=== PATIENT | male | born 1970 | race Caucasian/White ===

== ENCOUNTER 2016-11-03 13:02 | Emergency (ER) | payer MEDICARE, OTHER ==
[~2016-11-03] VITALS: Ht 175.3 cm; Wt 65.0 kg
[~2016-11-03 13:02] MED LIST: CALC500T19 PO; MIRA33502 PO; PERC5TAB12 PO; PRIL20CA PO
[2016-11-03 13:04] VITALS: BP 155/102; PULSE 88; RESP 20; TEMP 97.9; O2SAT 97
--- NOTE | 2016-11-03 13:25 | PD ---
HPI Chief Complaint: Back/ Neck Pain or Injury Time Seen by Provider: 13:22 Travel History International Travel<30 days: No Contact w/Intl Traveler<30days: No Traveled to known affect area: No History of Present Illness HPI Patient comes in complaining of right-sided low back pain that is sharp/ stabbing in nature and radiates down his right lower extremity. Patient states 4 days ago he slipped falling backwards hitting his low back on stairs. Denies any fevers, loss or change in bowel or bladder, IV drug use, hitting his head, loss of consciousness, numbness or tingling, or abdominal pain. Patient states he's been taking Tylenol with minimal to no relief of his symptoms. Pain is worse with certain movement and standing up straight. Patient reports he had similar pain in the past was told is secondary to sciatic nerve. PFSH Past Medical History Cancer: Yes Cardiovascular Problems: No Chemotherapy: No (radiation throat cancer) Endocrine: No Genitourinary: No Immune Disorder: No Musculoskeletal: Yes (SCIATICA) Neurologic: No Psychiatric: No Reproductive: No Respiratory: No Social History Alcohol Use: Yes (4 "TALL BOYS" DAILY) Tobacco Use: Yes (1-1.5 PPD) Substance Use: No Allergies-Medications (Allergen,Severity, Reaction): Coded Allergies: No Known Allergies (Unverified , 11/03/16) Reported Meds & Prescriptions Reported Meds & Active Scripts Active Naprosyn (Naproxen) 500 Mg Tab 500 Mg PO Q12HR PRN Robaxin (Methocarbamol) 500 Mg Tab 500 Mg PO Q8HR PRN Review of Systems Except as stated in HPI: all other systems reviewed are Neg Physical Exam Narrative GENERAL: Well-developed, well nourished, in no acute distress, and non-ill appearing. SKIN: Warm and dry. HEAD: Atraumatic. Normocephalic. EYES: Pupils equal and round. EOMI. No scleral icterus. No injection or drainage. ENT: No nasal bleeding or discharge. Mucous membranes pink and moist. NECK: Trachea midline. Supple. No nuclear rigidity. CARDIOVASCULAR: No pedal edema. RESPIRATORY: No accessory muscle use. No respiratory distress. GASTROINTESTINAL: Abdomen soft, non-tender, nondistended. Hepatic and splenic margins not palpable. No pulsatile mass. MUSCULOSKELETAL: No obvious deformities. No clubbing. No cyanosis. No edema. Full range of motion. No tenderness or crepitus or midline of the lumbar spine. Patient reports tenderness to the paravertebral spinal muscles on the right and lower lumbar muscles laterally on the right. Straight leg test negative bilaterally. Sensation intact over first web space bilateral lower extremities. NEUROLOGICAL: Awake and alert. No obvious cranial nerve deficits. Motor grossly within normal limits. Normal speech. PSYCHIATRIC: Appropriate mood and affect; insight and judgment normal. Data Data Last Documented VS Vital Signs Date Time Temp Pulse Resp B/P Pulse Ox O2 Delivery O2 Flow Rate FiO2 11/03/16 13:04 97.9 88 20 155/102 97 Room Air Orders Spine, Lumbar - Ltd (Ap & Lat) (11/03/16 ) Ketorolac Inj (Toradol Inj) (11/03/16 13:30) Methocarbamol (Robaxin) (11/03/16 13:30) MDM Medical Decision Making Medical Screen Exam Complete: Yes Emergency Medical Condition: Yes Differential Diagnosis Patient presents with apparent back strain. The patient presented complaining of back pain. There was history of preceding trauma. X-rays were obtained and no obvious fracture or acute disease was noted at this time. The patient has no neurological complaints. The patient has been behaving normally and no notable altered mental status. Denhoff score of 15. The patients neurological exam is normal with normal motor and sensory. There is no saddle paresthesias reported and no bowel or bladder incontinence or retention. . The patients evaluation was consistent with soft tissue injury and not consistent with bony injury. Clinical suspicion, plan of care and management was discussed with the patient. The patient was instructed to follow up with their health care provider. The patient was also instructed to return if the pain worsened, changed, or developed weakness or bowel or bladder trouble. The patient agreed with plan. There was no evidence to support genitourinary etiology. There is also no evidence to suggest vascular pathology such as AAA dissection. No fevers or other evidence to suspect infectious processes, abscess etc. Patient in no obvious distress upon re-evaluation. All pertinent Radiology result(s) discussed with patient/family. Patient was asked if they wanted to speak to my attending, which the patient did not wish to do at this time. Any questions/concerns in reference to patient diagnosis/condition discussed and clarified prior to patient's discharge. Reinforced sheer importance of close follow up with patient's primary physician or primary care clinic. Instructed patient to return to ED immediately, if symptoms return/worsen. Pt showed understanding of above instructions. Further instructions and recommendations were detailed in discharge paperwork. Pt ambulated without difficulty out of ED at discharge. Narrative Course 1450 patient reassessed resting comfortably in bed reports symptoms improved status post medication. Diagnosis Primary Impression: Low back pain Qualified Code: M54.41 - Acute right-sided low back pain with right-sided sciatica Referrals: Dionisio Hickman MD Patient Instructions: Acute Low Back Pain (ED), General Instructions, Sciatica (ED) Additional Instructions: Follow-up with your primary care physician and/or orthopedics in 2-3 days for reevaluation. Take all medication as prescribed. Return to the emergency department if symptoms get worse. Med/Other Pt SpecificInfo: Prescription(s) given Scripts Naproxen (Naprosyn)500 Mg [id number] Mg PO Q12HR PRN (PAIN SCALE 1 TO 10) #14 TAB Ref 0 Prov:Jessi Bautista MD 11/03/16 Methocarbamol (Robaxin)500 Mg [id number] Mg PO Q8HR PRN (MUSCLE PAIN) #15 TAB Ref 0 Prov:Jessi Bautista MD 11/03/16 Disposition: 01 DISCHARGE HOME Condition: Stable Gautam Gifford Nov 03, 2016 13:25
[2016-11-03] MEDS ORDERED: METHOCARBAMOL 500 MG TAB PO ONE (13:30)
[2016-11-03] MEDS ORDERED: KETOROLAC TROMETHAMINE 60 MG/2 ML (IM) VIAL IM ONE (13:30)
--- NOTE | 2016-11-03 15:00 | RADRPT ---
EXAM DATE/TIME: 11/03/2016 13:42 [facility] COMPARISON: SPINE LUMBAR LTD (AP & LAT), December 14, 2013, 16:28. INDICATIONS : Lower Back pain after falling down stairs. MEDICAL HISTORY : None. SURGICAL HISTORY : None. ENCOUNTER: Initial ACUITY: 4 - 6 days PAIN SCORE: 8/10 LOCATION: Lumbar Spine. FINDINGS: 3 views lumbar spine. Small endplate osteophytes at L2-3, L3-4, and L4-5 and unchanged. Bone alignmen t within normal limits. No evidence of fracture. CONCLUSION: Degenerative findings lumbar spine. No evidence of fracture. Julio Plolack MD on November 03, 2016 at 14:57 Board Certified Radiologist. This report was verified electronically.
[2016-11-03] MEDS ORDERED: NAPR500 PO (15:11)
[2016-11-03] MEDS ORDERED: ROBA500T PO (15:11)
== END 2016-11-03 15:35 | disposition home or self-care (01) ==
LOC: NEPB 13:02
DX: M54.41 Lumbago with sciatica, right side (principal); F17.210 Nicotine dependence, cigarettes, uncomplicated; W10.9XXA Fall (on) (from) unspecified stairs and steps, initial encounter
CPT/HCPCS: 72100; 96372; 99283; J1885

== ENCOUNTER 2017-09-29 11:00 | Inpatient (IN) | payer MEDICARE, MEDICAID, OTHER ==
[2017-09-29 11:45] LABS: BASOPHIL % 0.7 % (0.0-2.0); EOSINOPHIL % 0.3 % (0.0-4.0); HEMATOCRIT 33.2 % (39.0-51.0); HEMO FLAGS DIFF FINAL; HEMOGLOBIN 11.6 GM/DL (13.0-17.0); LYMPH % 11.5 % (9.0-44.0); LYMPHOCYTE # 0.6 TH/MM3 (1.0-4.8); MEAN CELL VOLUME 100.3 FL (80.0-100.0); MEAN CORPUSCULAR HEMOGLOBIN 35.2 PG (27.0-34.0); MEAN CORPUSCULAR HGB CONC 35.1 % (32.0-36.0); MEAN PLATELET VOLUME 6.9 FL (7.0-11.0); MONO % 15.1 % (0.0-8.0); MONOCYTE # 0.8 TH/MM3 (0-0.9); NEUT % 72.4 % (16.0-70.0); PLATELET COUNT 229 TH/MM3 (150-450); RED BLOOD COUNT 3.31 MIL/MM3 (4.50-5.90); RED CELL DISTRIBUTION WIDTH 12.5 % (11.6-17.2); WHITE BLOOD COUNT 5.5 TH/MM3 (4.0-11.0)
[2017-09-29 11:52] LABS: APTT (PATIENT) 32.9 SEC (24.3-30.1); PROTHROMBIN TIME - PATIENT 10.4 SEC (9.8-11.6)
[2017-09-29 12:31] LABS: ALBUMIN 4.3 GM/DL (3.4-5.0); ALKALINE PHOSPHATASE 100 U/L (45-117); ALT (GPT) 43 U/L (12-78); ANION GAP 9 MEQ/L (5-15); AST (GOT) 89 U/L (15-37); BICARBONATE 24.1 MEQ/L (21.0-32.0); BLOOD UREA NITROGEN 6 MG/DL (7-18); CALCIUM 8.7 MG/DL (8.5-10.1); CHLORIDE 89 MEQ/L (98-107); CREATININE 0.78 MG/DL (0.60-1.30); GLOMERULAR FILTRATION RATE 107 ML/MIN (>89); GLUCOSE,RANDOM 83 MG/DL (74-106); POTASSIUM 3.8 MEQ/L (3.5-5.1); TOTAL BILIRUBIN ADULT 0.8 MG/DL (0.2-1.0)
[2017-09-29 12:34] LABS: SODIUM (NA) 122 MEQ/L (136-145)
[2017-09-29] MEDS: IOHEXOL 350 MG/ML 10 ML VIAL (for RAD DIAG) IVCONTRAST (14:37)
[2017-09-29] MEDS: AZITHROMYCIN 250 MG TAB PO (15:11)
[2017-09-29] MEDS ORDERED: NALOXONE HCL 0.4 MG/ML AMP IV PUSH (15:45)
[2017-09-29] MEDS ORDERED: ACETAMINOPHEN 325 MG TAB PO ×2 (15:45)
[2017-09-29] MEDS ORDERED: ONDANSETRON HCL 4 MG/2 ML VIAL IVP (15:45)
[2017-09-29] MEDS: cefTRIAXone INJ 1,000 MG in SODIUM CHLORIDE 0.9% INJ 100 ML IV (15:49)
[2017-09-29] MEDS: SODIUM CHLOR 0.9% 1000 ML INJ 1,000 ML IV (15:50)
[2017-09-29] MEDS ORDERED: LORazepam 2 MG/ML VIAL IV PUSH ×2 (16:00)
[2017-09-29] MEDS ORDERED: LORazepam 2 MG TAB PO (16:00)
[2017-09-29] MEDS ORDERED: FLUMAZENIL 0.5 MG/5 ML VIAL IV PUSH (16:00)
[2017-09-29] MEDS ORDERED: LORazepam 1 MG TAB PO (16:00)
[2017-09-29 16:23] LABS: TROPONIN I LESS THAN 0.02 NG/ML (0.02-0.05)
[2017-09-29] MEDS: DOCUSATE SODIUM 50 MG/SENNA 8.6 MG TAB PO (20:21)
[2017-09-29] MEDS: SODIUM CHLORIDE 0.9% FLUSH 10 ML FLUSH IV FLUSH (20:22)
[2017-09-29 22:12] LABS: ANION GAP 7 MEQ/L (5-15); BICARBONATE 24.6 MEQ/L (21.0-32.0); BLOOD UREA NITROGEN 7 MG/DL (7-18); CALCIUM 8.4 MG/DL (8.5-10.1); CHLORIDE 93 MEQ/L (98-107); CREATININE 0.88 MG/DL (0.60-1.30); GLOMERULAR FILTRATION RATE 93 ML/MIN (>89); GLUCOSE,RANDOM 88 MG/DL (74-106); MAGNESIUM 2.5 MG/DL (1.5-2.5); POTASSIUM 3.6 MEQ/L (3.5-5.1); SODIUM (NA) 125 MEQ/L (136-145)
[2017-09-29 22:17] LABS: TROPONIN I LESS THAN 0.02 NG/ML (0.02-0.05)
[2017-09-30] MEDS: SODIUM CHLOR 0.9% 1000 ML INJ 1,000 ML IV (03:40)
[2017-09-30 04:01] LABS: BASOPHIL % 0.5 % (0.0-2.0); EOSINOPHIL % 0.7 % (0.0-4.0); HEMATOCRIT 31.1 % (39.0-51.0); HEMO FLAGS DIFF FINAL; HEMOGLOBIN 10.8 GM/DL (13.0-17.0); LYMPH % 14.1 % (9.0-44.0); LYMPHOCYTE # 0.6 TH/MM3 (1.0-4.8); MEAN CELL VOLUME 99.7 FL (80.0-100.0); MEAN CORPUSCULAR HEMOGLOBIN 34.8 PG (27.0-34.0); MEAN CORPUSCULAR HGB CONC 34.9 % (32.0-36.0); MONO % 13.3 % (0.0-8.0); MONOCYTE # 0.6 TH/MM3 (0-0.9); NEUT % 71.4 % (16.0-70.0); PLATELET COUNT 230 TH/MM3 (150-450); RED BLOOD COUNT 3.12 MIL/MM3 (4.50-5.90); RED CELL DISTRIBUTION WIDTH 12.4 % (11.6-17.2); WHITE BLOOD COUNT 4.2 TH/MM3 (4.0-11.0)
[2017-09-30 04:23] LABS: ANION GAP 9 MEQ/L (5-15); BICARBONATE 23.4 MEQ/L (21.0-32.0); BLOOD UREA NITROGEN 8 MG/DL (7-18); CALCIUM 8.4 MG/DL (8.5-10.1); CHLORIDE 96 MEQ/L (98-107); CREATININE 0.69 MG/DL (0.60-1.30); GLOMERULAR FILTRATION RATE 123 ML/MIN (>89); GLUCOSE,RANDOM 89 MG/DL (74-106); POTASSIUM 3.7 MEQ/L (3.5-5.1); SODIUM (NA) 128 MEQ/L (136-145)
[2017-09-30 04:26] LABS: ALBUMIN 3.5 GM/DL (3.4-5.0); ALT (GPT) 33 U/L (12-78); ANION GAP 9 MEQ/L (5-15); AST (GOT) 59 U/L (15-37); BICARBONATE 23.7 MEQ/L (21.0-32.0); BLOOD UREA NITROGEN 7 MG/DL (7-18); CALCIUM 8.3 MG/DL (8.5-10.1); CHLORIDE 96 MEQ/L (98-107); GLOMERULAR FILTRATION RATE 121 ML/MIN (>89); GLUCOSE,RANDOM 86 MG/DL (74-106); POTASSIUM 3.7 MEQ/L (3.5-5.1); SODIUM (NA) 129 MEQ/L (136-145)
[2017-09-30 04:27] LABS: ALKALINE PHOSPHATASE 97 U/L (45-117); TOTAL BILIRUBIN ADULT 0.8 MG/DL (0.2-1.0); TOTAL PROTEIN 7.9 GM/DL (6.4-8.2)
[2017-09-30 04:28] LABS: TROPONIN I LESS THAN 0.02 NG/ML (0.02-0.05)
[2017-09-30] MEDS ORDERED: CEFEPIME 2000 MG/NS 100 ML IV (06:00)
[2017-09-30] MEDS: AZITHROMYCIN 250 MG TAB PO (07:50)
[2017-09-30] MEDS: DOCUSATE SODIUM 50 MG/SENNA 8.6 MG TAB PO ×2 (07:52→20:04)
[2017-09-30] MEDS: SODIUM CHLORIDE 0.9% FLUSH 10 ML FLUSH IV FLUSH ×2 (07:52→20:04)
[2017-09-30] MEDS: cefTRIAXone INJ 1,000 MG in SODIUM CHLORIDE 0.9% INJ 100 ML IV (15:58)
[2017-09-30] MEDS: PIPERACIL-TAZO 3.375 GM PREMIX 50 ML IV (20:04)
[2017-09-30] MEDS: methylPREDNISolone SOD SUCC 40 MG/1 ML VIAL IV (20:04)
[2017-10-01] MEDS: methylPREDNISolone SOD SUCC 40 MG/1 ML VIAL IV ×3 (04:43→20:25)
[2017-10-01] MEDS: PIPERACIL-TAZO 3.375 GM PREMIX 50 ML IV ×3 (04:44→20:25)
[2017-10-01] MEDS: SODIUM CHLORIDE 0.9% FLUSH 10 ML FLUSH IV FLUSH ×3 (04:51→20:27)
[2017-10-01 08:34] LABS: ANION GAP 10 MEQ/L (5-15); BICARBONATE 22.6 MEQ/L (21.0-32.0); BLOOD UREA NITROGEN 5 MG/DL (7-18); CALCIUM 8.8 MG/DL (8.5-10.1); CHLORIDE 95 MEQ/L (98-107); CREATININE 0.68 MG/DL (0.60-1.30); GLOMERULAR FILTRATION RATE 125 ML/MIN (>89); GLUCOSE,RANDOM 126 MG/DL (74-106); SODIUM (NA) 128 MEQ/L (136-145)
[2017-10-01 08:46] LABS: HEMATOCRIT 32.6 % (39.0-51.0); HEMOGLOBIN 11.4 GM/DL (13.0-17.0); MEAN CELL VOLUME 101.6 FL (80.0-100.0); MEAN CORPUSCULAR HEMOGLOBIN 35.6 PG (27.0-34.0); MEAN CORPUSCULAR HGB CONC 35.1 % (32.0-36.0); MEAN PLATELET VOLUME 6.9 FL (7.0-11.0); PLATELET COUNT 282 TH/MM3 (150-450); RED BLOOD COUNT 3.21 MIL/MM3 (4.50-5.90); RED CELL DISTRIBUTION WIDTH 12.6 % (11.6-17.2); REVIEW FLAG FINAL; WHITE BLOOD COUNT 3.3 TH/MM3 (4.0-11.0)
[2017-10-01] MEDS: DOCUSATE SODIUM 50 MG/SENNA 8.6 MG TAB PO ×2 (09:00→20:25)
[2017-10-01] MEDS: AZITHROMYCIN 250 MG TAB PO (10:13)
[2017-10-01] MEDS ORDERED: RESP: ALBUTEROL 2.5 MG/3 ML NEB (PRN) NEB (12:45)
[2017-10-01] MEDS ORDERED: DO NOT ADM ANY ANTICOAGULANT DRUGS (12:49)
[2017-10-02] MEDS: methylPREDNISolone SOD SUCC 40 MG/1 ML VIAL IV (04:17)
[2017-10-02] MEDS: PIPERACIL-TAZO 3.375 GM PREMIX 50 ML IV (04:24)
[2017-10-02] MEDS: SODIUM CHLORIDE 0.9% FLUSH 10 ML FLUSH IV FLUSH ×3 (04:24→08:01)
[2017-10-02] MEDS: AZITHROMYCIN 250 MG TAB PO (08:01)
[2017-10-02] MEDS: DOCUSATE SODIUM 50 MG/SENNA 8.6 MG TAB PO (08:01)
== END 2017-10-02 12:00 | disposition home or self-care (01) | DRG 167 ==
LOC: NEPC 11:00 → NEDA 15:24 → HCIN 16:48
PROC: 0B9J8ZX Drainage of Left Lower Lung Lobe, Via Natural or Artificial Opening Endoscopic, Diagnostic (ICD-10-PCS; principal; 2017-10-01)
PROC: 0B9C8ZX Drainage of Right Upper Lung Lobe, Via Natural or Artificial Opening Endoscopic, Diagnostic (ICD-10-PCS; 2017-10-01)
PROC: 0B9G8ZX Drainage of Left Upper Lung Lobe, Via Natural or Artificial Opening Endoscopic, Diagnostic (ICD-10-PCS; 2017-10-01)
PROC: 0B9D8ZX Drainage of Right Middle Lung Lobe, Via Natural or Artificial Opening Endoscopic, Diagnostic (ICD-10-PCS; 2017-10-01)
PROC: 0B9F8ZX Drainage of Right Lower Lung Lobe, Via Natural or Artificial Opening Endoscopic, Diagnostic (ICD-10-PCS; 2017-10-01)
PROC: 0BDJ8ZX Extraction of Left Lower Lung Lobe, Via Natural or Artificial Opening Endoscopic, Diagnostic (ICD-10-PCS; 2017-10-01)
PROC: 0BD18ZX Extraction of Trachea, Via Natural or Artificial Opening Endoscopic, Diagnostic (ICD-10-PCS; 2017-10-01)
DX: J69.0 Pneumonitis due to inhalation of food and vomit (principal); R04.2 Hemoptysis; E87.1 Hypo-osmolality and hyponatremia; Z93.0 Tracheostomy status; Z68.1 Body mass index [BMI] 19.9 or less, adult; E86.1 Hypovolemia; M54.30 Sciatica, unspecified side; D64.9 Anemia, unspecified; R63.4 Abnormal weight loss; J47.9 Bronchiectasis, uncomplicated; Z85.21 Personal history of malignant neoplasm of larynx; Z86.718 Personal history of other venous thrombosis and embolism; Z87.891 Personal history of nicotine dependence; Z92.3 Personal history of irradiation
CPT/HCPCS: 31623; 70491; 71045; 71046; 71275; 80048; 80053; 83735; 84100; 84484; 85025; 85027; 85610; 85730; 86403; 87015; 87040; 87070; 87102; 87116; 87186; 87205; 87206; 88112; 88305; 88312; 88341; 93005; 99285-25

== ENCOUNTER 2017-12-04 15:49 | Observation (INO) | payer MEDICARE, MEDICAID ==
[~2017-12-04] VITALS: Ht 180.3 cm; Wt 63.6 kg
[~2017-12-04 15:49] MED LIST changes: +AUGM875T3 PO; -CALC500T19 PO; -MIRA33502 PO; -PERC5TAB12 PO; +PRED10PA PO; -PRIL20CA PO; +VANCOMYCIN INJ 1,000 MG in SODIUM CHLOR 0.9% 250 ML INJ 250 ML IV SCH
[2017-12-04 15:59] VITALS: BP 129/79; PULSE 94; RESP 16; TEMP 99; O2SAT 99
--- NOTE | 2017-12-04 16:28 | RADRPT ---
EXAM DATE/TIME: 12/04/2017 16:12 [facility] COMPARISON: No previous studies available for comparison. INDICATIONS : Right hand third digit pain and swelling. No known injury. MEDICAL HISTORY : None. SURGICAL HISTORY : tracheostomy. ENCOUNTER: Initial ACUITY: 1 day PAIN SCORE: 10/10 LOCATION: Right hand, third digit. FINDINGS: Examination of the third digit of the right hand demonstrates demonstrates severe soft tissue swellin g extending from the finger and to the metacarpal region. Status of soft tissue swelling seen along t he dorsum of the metacarpal region. The osseous structures are intact. Mild arthropathy with joint space narrowing is seen of the proxima l interphalangeal joint of the third digit. There is no evidence of fracture or destructive changes. CONCLUSION: Severe soft tissue swelling of the right third digit extending into the metacarpal region. No evidence of acute fracture or destructive bone changes. No evidence of radiopaque foreign body Stuart King MD on December 04, 2017 at 16:24 Board Certified Radiologist. This report was verified electronically.
[2017-12-04 17:54] LABS: BASOPHIL # 0.1 TH/MM3 (0-0.2); BASOPHIL % 0.7 % (0.0-2.0); EOSINOPHIL # 0.1 TH/MM3 (0-0.4); EOSINOPHIL % 1.2 % (0.0-4.0); HEMATOCRIT 33.5 % (39.0-51.0); HEMOGLOBIN 11.6 GM/DL (13.0-17.0); LYMPH % 10.3 % (9.0-44.0); LYMPHOCYTE # 0.8 TH/MM3 (1.0-4.8); MEAN CELL VOLUME 101.1 FL (80.0-100.0); MEAN CORPUSCULAR HEMOGLOBIN 35.1 PG (27.0-34.0); MEAN CORPUSCULAR HGB CONC 34.7 % (32.0-36.0); MEAN PLATELET VOLUME 7.1 FL (7.0-11.0); MONO % 8.2 % (0.0-8.0); MONOCYTE # 0.6 TH/MM3 (0-0.9); NEUT % 79.6 % (16.0-70.0); PLATELET COUNT 250 TH/MM3 (150-450); RED BLOOD COUNT 3.31 MIL/MM3 (4.50-5.90); RED CELL DISTRIBUTION WIDTH 13.6 % (11.6-17.2); WHITE BLOOD COUNT 7.5 TH/MM3 (4.0-11.0)
[2017-12-04 18:08] LABS: PROTHROMBIN TIME - PATIENT 10.1 SEC (9.8-11.6)
[2017-12-04 18:26] LABS: BICARBONATE 25.5 MEQ/L (21.0-32.0); CREATININE 0.78 MG/DL (0.60-1.30)
[2017-12-04] MEDS ORDERED: LIDOCAINE HCL 1% 50 ML VIAL INFIL ONE (21:15)
[2017-12-04] MEDS ORDERED: CLINDAMYCIN INJ 900 MG in SODIUM CHLORIDE 0.9% INJ 100 ML IV ONE (21:15)
[2017-12-04] MEDS ORDERED: SODIUM CHLORIDE 0.9% FLUSH 10 ML FLUSH IVF PRN (21:15)
[2017-12-04] MEDS ORDERED: LIDOCAINE HCL 2% 20 ML VIAL ONE (21:28)
[2017-12-04] MEDS ORDERED: CLINDAMYCIN 900 MG/NS PREMIX 50 ML IV ONE (21:30)
--- NOTE | 2017-12-04 22:52 | PD ---
HPI Chief Complaint: Skin Problem Time Seen by Provider: 21:09 Travel History International Travel<30 days: No Contact w/Intl Traveler<30days: No Traveled to known affect area: No History of Present Illness HPI 47-year-old male complains of right long finger swelling for about 3 days. He reports constant severe pain worse with palpation and passive or active flexion. There has been no fever. The pain radiates into the forearm. He is unaware of any injury trauma or puncture wound/laceration or infection involving the hand. 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 PFSH Past Medical History Cancer: Yes (laryngeal cancer) Cardiovascular Problems: No Chemotherapy: No Endocrine: No Gastrointestinal Disorders: No Genitourinary: No Immune Disorder: No Implanted Vascular Access Dvce: No Musculoskeletal: Yes (SCIATICA) Neurologic: No Psychiatric: No Reproductive: No Respiratory: No Radiation Therapy: Yes Past Surgical History Abdominal Surgery: No Body Medical Devices: plates in right foot, artificial voicebox Cardiac Surgery: No Ear Surgery: No Endocrine Surgery: No Eye Surgery: No Genitourinary Surgery: No Gynecologic Surgery: No Oral Surgery: No Thoracic Surgery: Yes (tracheostomy plaement and removal) Other Surgery: No Social History Alcohol Use: Yes (4 "TALL BOYS" DAILY) Tobacco Use: Yes (1-1.5 PPD) Substance Use: Yes (beer) Allergies-Medications (Allergen,Severity, Reaction): Coded Allergies: No Known Allergies (Unverified Allergy, Unknown, 09/29/17) Reported Meds & Prescriptions Reported Meds & Active Scripts Active Prednisone (21) 10 mg tab Dose Pack (Prednisone) 10 Mg Pack 10 Mg PO DIRECTED Augmentin (Amoxicillin-Clavulanate) 875-125 Mg Tab 1 Tab PO BID Review of Systems Except as stated in HPI: all other systems reviewed are Neg General / Constitutional: No: Fever Eyes: No: Drainage HENT: No: Lightheadedness Physical Exam Narrative GENERAL: 47-year-old male well-nourished well-developed pleasant Vital Signs Date Time Temp Pulse Resp B/P (MAP) Pulse Ox O2 Delivery O2 Flow Rate FiO2 12/04/17 15:59 99.0 94 16 129/79 (96) 99 SKIN: Warm and dry. HEAD: Atraumatic. Normocephalic. EYES: Pupils equal and round. No scleral icterus. No injection or drainage. ENT: No nasal bleeding or discharge. Mucous membranes pink and moist. Tracheotomy. NECK: Trachea midline. No JVD. CARDIOVASCULAR: Regular rate and rhythm. RESPIRATORY: No accessory muscle use. Clear to auscultation. Breath sounds equal bilaterally. GASTROINTESTINAL: Abdomen soft, non-tender, nondistended. Hepatic and splenic margins not palpable. MUSCULOSKELETAL: The long finger on the right hand is diffuse swelling from the proximal articulation to the fingertip with paronychia. Minimal ecchymosis noted. NEUROLOGICAL: Awake and alert. No obvious cranial nerve deficits. Motor grossly within normal limits. Five out of 5 muscle strength in the arms and legs. Normal speech. PSYCHIATRIC: Appropriate mood and affect; insight and judgment normal. Data Data Last Documented VS Vital Signs Date Time Temp Pulse Resp B/P (MAP) Pulse Ox O2 Delivery O2 Flow Rate FiO2 12/04/17 15:59 99.0 94 16 129/79 (96) 99 Orders Orders Finger ([id number]) (12/04/17 ) Complete Blood Count With Diff (12/04/17 16:02) Basic Metabolic Panel (Bmp) (12/04/17 16:02) Act Partial Throm Time (Ptt) (12/04/17 16:02) Prothrombin Time / Inr (Pt) (12/04/17 16:02) Blood Culture (12/04/17 16:02) Wound Culture And Gram Stain (12/04/17 21:12) Iv Access Insert/Monitor (12/04/17 21:12) Wound Care (12/04/17 21:12) Lidocaine 1% Inj (50 Ml) (Xylocaine 1% I (12/04/17 21:15) Sodium Chloride 0.9% Flush (Ns Flush) (12/04/17 21:15) Lidocaine 2% Inj (Xylocaine 2% Inj) (12/04/17 21:28) Clindamycin 900 Mg/Ns Premix (Cleocin 90 (12/04/17 21:30) Admit Order (Ed Use Only) (12/04/17 ) Vital Signs (Adult) Q4H (12/04/17 22:12) Diet Heart Healthy (12/05/17 Breakfast) Activity Bed Rest (12/04/17 22:12) Labs Laboratory Tests Test 12/04/17 17:19 White Blood Count 7.5 TH/MM3 Red Blood Count 3.31 MIL/MM3 Hemoglobin 11.6 GM/DL Hematocrit 33.5 % Mean Corpuscular Volume 101.1 FL Mean Corpuscular Hemoglobin 35.1 PG Mean Corpuscular Hemoglobin Concent 34.7 % Red Cell Distribution Width 13.6 % Platelet Count 250 TH/MM3 Mean Platelet Volume 7.1 FL Neutrophils (%) (Auto) 79.6 % Lymphocytes (%) (Auto) 10.3 % Monocytes (%) (Auto) 8.2 % Eosinophils (%) (Auto) 1.2 % Basophils (%) (Auto) 0.7 % Neutrophils # (Auto) 6.0 TH/MM3 Lymphocytes # (Auto) 0.8 TH/MM3 Monocytes # (Auto) 0.6 TH/MM3 Eosinophils # (Auto) 0.1 TH/MM3 Basophils # (Auto) 0.1 TH/MM3 CBC Comment DIFF FINAL Differential Comment Prothrombin Time 10.1 SEC Prothromb Time International Ratio 1.0 RATIO Activated Partial Thromboplast Time 33.4 SEC Blood Urea Nitrogen 4 MG/DL Creatinine 0.78 MG/DL Random Glucose 79 MG/DL Calcium Level 9.0 MG/DL Sodium Level 130 MEQ/L Potassium Level 3.9 MEQ/L Chloride Level 95 MEQ/L Carbon Dioxide Level 25.5 MEQ/L Anion Gap 10 MEQ/L Estimat Glomerular Filtration Rate 107 ML/MIN MDM Medical Decision Making Medical Screen Exam Complete: Yes Emergency Medical Condition: Yes Medical Record Reviewed: Yes Differential Diagnosis Infectious tenosynovitis, paronychia, cellulitis Narrative Course CBC & BMP Diagram 12/04/17 17:19 Calcium Level 9.0 Last Impressions Finger X-Ray 12/04/17 0000 Signed Impressions: Service Date/Time: Monday, December 04, 2017 16:12 - CONCLUSION: Severe soft tissue swelling of the right third digit extending into the metacarpal region. No evidence of acute fracture or destructive bone changes. No evidence of radiopaque foreign body Stuart King MD Clindamycin started. The patient's finger was drained by me at the bedside with scant purulent discharge. A culture was sent. Patient will be admitted for IV antibiotics and hand surgery evaluation. Discussed with Dr. aPrra. Procedures Procedure Narrative After the risks and benefits were discussed the following procedure was performed: INCISION AND DRAINAGE OF ABSCESS: The area was prepped and was sterilely draped. Digital block of R long digit performed. The area was properly anesthetized. A number 11 scalpel was used to make a 0.5 -cm incision across the area of the abscess. Cultures were obtained. The abscess was drained an irrigated with normal saline. Quarter inch iodoform packing was placed in the wound. Sterile dressing applied. Patient advised to have packing removed in two days. Diagnosis Primary Impression: Finger infection Additional Impression: Paronychia of finger Qualified Codes: L03.011 - Cellulitis of right finger Admitting Information Admitting Physician Requests: Observation John Olivas MD Dec 04, 2017 22:52
[2017-12-04] MEDS ORDERED: ONDANSETRON HCL 4 MG/2 ML VIAL IVP PRN (23:00)
[2017-12-04] MEDS ORDERED: SODIUM CHLORIDE 0.9% FLUSH 10 ML FLUSH IV FLUSH PRN (23:00)
[2017-12-04] MEDS ORDERED: ACETAMINOPHEN 325 MG TAB PO PRN (23:00)
[2017-12-04] MEDS ORDERED: NALOXONE HCL 0.4 MG/ML AMP IV PUSH PRN (23:00)
[2017-12-04] MEDS ORDERED: Vancomycin Consult Pharmacy 1 EA OTHER SCH (23:00)
--- NOTE | 2017-12-04 23:08 | HHI.HP ---
[facility]PI [facility] Primary [facility] Physician No Primary Care Physician Admission Diagnosis Finger Infection Diagnoses: Travel History International Travel<30 Days: No Contact w/Intl Traveler <30 Da: No Traveled to Known Affected Are: No History of Present Illness 47-year-old male with a past medical history significant for throat cancer presents to the emergency department for evaluation of the third digit right hand swelling. The patient reports that the swelling initially started 4-5 days ago and has increasingly worsened. He denies any fever/chills. The patient has constant severe pain worse with palpation and passive or active flexion of the fingers. Pain radiates to the forearm with erythema on the dorsum of the hand and up the forearm. The patient denies any type of laceration or puncture to the area. No chest pain or shortness of breath. No nausea/vomiting/diarrhea. No abdominal pain. Review of Systems Except as stated in HPI: all other systems reviewed are Neg Past Family Social History Past Medical History Throat cancer Past Surgical History Tracheostomy Throat cancer surgery, patient unclear of exact procedure Reported Medications Reported Meds & Active Scripts Active Prednisone (21) 10 mg tab Dose Pack (Prednisone) 10 Mg Pack 10 Mg PO DIRECTED Augmentin (Amoxicillin-Clavulanate) 875-125 Mg Tab 1 Tab PO BID Allergies: Coded Allergies: No Known Allergies (Unverified Allergy, Unknown, 09/29/17) Family History Negative for CAD/DM Social History Quit tobacco 4 years ago. Rare alcohol. Denies illicit drugs. Physical Exam Vital Signs Vital Signs Date Time Temp Pulse Resp B/P (MAP) Pulse Ox O2 Delivery O2 Flow Rate FiO2 12/04/17 15:59 99.0 94 16 129/79 (96) 99 Physical Exam GENERAL: male sitting up in bed SKIN: Third digit of the right hand has diffuse swelling with erythema that extends to the forearm. HEAD: Atraumatic. Normocephalic. No temporal or scalp tenderness. EYES: Pupils equal round and reactive. Extraocular motions intact. No scleral icterus. No injection or drainage. ENT: Nose without bleeding, purulent drainage or septal hematoma. Throat without erythema, tonsillar hypertrophy or exudate. Uvula midline. Airway patent. Tracheostomy. NECK: Trachea midline. No JVD or lymphadenopathy. Supple, nontender, no meningeal signs. CARDIOVASCULAR: Regular rate and rhythm without murmurs, gallops, or rubs. RESPIRATORY: Clear to auscultation. Breath sounds equal bilaterally. No wheezes , rales, or rhonchi. GASTROINTESTINAL: Abdomen soft, non-tender, nondistended. No hepato-splenomegaly , or palpable masses. No guarding. MUSCULOSKELETAL: Extremities without clubbing, cyanosis, or edema. No joint tenderness, effusion, or edema noted. No calf tenderness. Severe pain with flexion or extension of the third digit right hand. NEUROLOGICAL: Awake and alert. Cranial nerves II through XII intact. Motor and sensory grossly within normal limits. Normal speech. Laboratory Laboratory Tests Test 12/04/17 17:19 White Blood Count 7.5 Red Blood Count 3.31 Hemoglobin 11.6 Hematocrit 33.5 Mean Corpuscular Volume 101.1 Mean Corpuscular Hemoglobin 35.1 Mean Corpuscular Hemoglobin Concent 34.7 Red Cell Distribution Width 13.6 Platelet Count 250 Mean Platelet Volume 7.1 Neutrophils (%) (Auto) 79.6 Lymphocytes (%) (Auto) 10.3 Monocytes (%) (Auto) 8.2 Eosinophils (%) (Auto) 1.2 Basophils (%) (Auto) 0.7 Neutrophils # (Auto) 6.0 Lymphocytes # (Auto) 0.8 Monocytes # (Auto) 0.6 Eosinophils # (Auto) 0.1 Basophils # (Auto) 0.1 CBC Comment DIFF FINAL Differential Comment Prothrombin Time 10.1 Prothromb Time International Ratio 1.0 Activated Partial Thromboplast Time 33.4 Blood Urea Nitrogen 4 Creatinine 0.78 Random Glucose 79 Calcium Level 9.0 Sodium Level 130 Potassium Level 3.9 Chloride Level 95 Carbon Dioxide Level 25.5 Anion Gap 10 Estimat Glomerular Filtration Rate 107 Date/Time Source Procedure Growth Status 12/04/17 20:51 Blood Peripheral Aerobic Blood Culture Pending Received 12/04/17 20:51 Blood Peripheral Anaerobic Blood Culture Pending Received 12/04/17 22:12 Wound Finger Gram Stain Pending Received 12/04/17 22:12 Wound Finger Wound Culture Pending Received Result Diagram: 12/04/17 1719 12/04/179 Caprini VTE Risk Assessment Caprini VTE Risk Assessment: No/Low Risk (score <= 1) Caprini Risk Assessment Model Point Value = 1 Point Value = 2 Point Value = 3 Point Value = 5 Age 41-60 Minor surgery BMI > 25 kg/m2 Swollen legs Varicose veins or History of unexplained or recurrent spontaneous Oral contraceptives or hormone replacement Sepsis (< 1 month) Serious lung disease, including pneumonia (< 1 month) Abnormal pulmonary function Acute myocardial infarction Congestive heart failure (< 1 month) History of inflammatory bowel disease Medical patient at bed rest Age 61-74 Arthroscopic surgery Major open surgery (> 45 min) Laparoscopic surgery (> 45 min) Malignancy Confined to bed (> 72 hours) Immobilizing plaster cast Central venous access Age >= 75 History of VTE Family history of VTE Factor V Leiden Prothrombin [id number] Lupus anticoagulant Anticardiolipin antibodies Elevated serum homocysteine Heparin-induced thrombocytopenia Other congenital or acquired thrombophilia Stroke (< 1 month) Elective arthroplasty Hip, pelvis, or leg fracture Acute spinal cord injury (< 1 month) Prophylaxis Regimen Total Risk Factor Score Risk Level Prophylaxis Regimen 0-1 Low Early ambulation 2 Moderate Order ONE of the following: *Sequential Compression Device (SCD) *Heparin 5000 units SQ BID 3-4 Higher Order ONE of the following medications: *Heparin 5000 units SQ TID *Enoxaparin/Lovenox 40 mg SQ daily (WT < 150 kg, CrCl > 30 mL/min) *Enoxaparin/Lovenox 30 mg SQ daily (WT < 150 kg, CrCl > 10-29 mL/min) *Enoxaparin/Lovenox 30 mg SQ BID (WT < 150 kg, CrCl > 30 mL/min) AND/OR *Sequential Compression Device (SCD) 5 or more Highest Order ONE of the following medications: *Heparin 5000 units SQ TID (Preferred with Epidurals) *Enoxaparin/Lovenox 40 mg SQ daily (WT < 150 kg, CrCl > 30 mL/min) *Enoxaparin/Lovenox 30 mg SQ daily (WT < 150 kg, CrCl > 10-29 mL/min) *Enoxaparin/Lovenox 30 mg SQ BID (WT < 150 kg, CrCl > 30 mL/min) AND *Sequential Compression Device (SCD) Assessment and Plan Assessment and Plan Assessment/plan: 1. Right hand cellulitis Concern for tenosynovitis MRI pending Hand surgery consulted, appreciate recommendations Vancomycin/Zosyn Wound, blood cultures pending FEN NPO Electrolytes: monitor and replete prn NS at 100 cc/hr Ambulation Laura Parra MD Dec 04, 2017 23:08
[2017-12-04 23:28] VITALS: BP 133/80; PULSE 72; RESP 16; TEMP 99.6; O2SAT 99
[2017-12-05] MEDS: PIPERACIL-TAZO 3.375 GM PREMIX 50 ML IV SCH ×5 (00:50→21:35)
[2017-12-05] MEDS: SODIUM CHLOR 0.9% 1000 ML INJ 1,000 ML IV SCH ×2 (00:50→09:24)
[2017-12-05] MEDS ORDERED: MORPHINE SULFATE 2 MG/ML INJ ONE (01:24)
[2017-12-05] MEDS: MORPHINE SULFATE 2 MG/ML INJ IV PUSH PRN ×4 (01:36→12:39)
[2017-12-05] MEDS: VANCOMYCIN INJ 1,000 MG in SODIUM CHLOR 0.9% 250 ML INJ 250 ML IV SCH ×2 (01:37→12:38)
[2017-12-05 03:11] VITALS: BP 110/72; PULSE 73; RESP 16; TEMP 99.7; O2SAT 98
[2017-12-05 07:12] LABS: AUTOMATED NEUTROPHIL # 4.4 TH/MM3 (1.8-7.7); BASOPHIL % 0.7 % (0.0-2.0); EOSINOPHIL # 0.1 TH/MM3 (0-0.4); HEMATOCRIT 30.3 % (39.0-51.0); HEMOGLOBIN 10.6 GM/DL (13.0-17.0); LYMPH % 7.8 % (9.0-44.0); LYMPHOCYTE # 0.4 TH/MM3 (1.0-4.8); MEAN CELL VOLUME 100.1 FL (80.0-100.0); MEAN CORPUSCULAR HEMOGLOBIN 35.1 PG (27.0-34.0); MEAN CORPUSCULAR HGB CONC 35.1 % (32.0-36.0); MEAN PLATELET VOLUME 7.1 FL (7.0-11.0); MONO % 7.3 % (0.0-8.0); MONOCYTE # 0.4 TH/MM3 (0-0.9); NEUT % 83.2 % (16.0-70.0); PLATELET COUNT 236 TH/MM3 (150-450); RED BLOOD COUNT 3.03 MIL/MM3 (4.50-5.90); RED CELL DISTRIBUTION WIDTH 13.5 % (11.6-17.2); WHITE BLOOD COUNT 5.3 TH/MM3 (4.0-11.0)
[2017-12-05 07:48] LABS: CALCIUM 8.4 MG/DL (8.5-10.1); CREATININE 0.76 MG/DL (0.60-1.30)
[2017-12-05 08:28] VITALS: BP 121/68; PULSE 62; RESP 18; TEMP 98.1; O2SAT 95
[2017-12-05] MEDS: SODIUM CHLORIDE 0.9% FLUSH 10 ML FLUSH IV FLUSH SCH ×2 (09:23→21:36)
[2017-12-05] MEDS ORDERED: POTASSIUM CHLORIDE 10 MEQ CONTROLLED RELEASE TAB PO ONE (09:30)
[2017-12-05] MEDS ORDERED: GADODIAMIDE PF 287 MG/ML 5 ML VIAL (for RAD MRI) IVCONTRAST ONE (10:01)
[2017-12-05 10:43] LABS: MAGNESIUM 1.9 MG/DL (1.5-2.5)
--- NOTE | 2017-12-05 11:03 | HHI.PR ---
Subjective Remarks Follow-up on patient with cellulitis right third digit/hand. Patient seen and examined. Patient denies any improvement since his admission. He continues to have significant pain swelling and redness in the right third digit. He denies any known injury or bite but states he does do a lot of work around the house and is "clumsy". He reports swelling over the left third knuckle 4-5 days ago which opened and drained on its own. Patient also found to have a cellulitic area right mid back which she states occurred after he ran into a door latch. Patient denies any history of IV drug use or other illicit drug use. Patient denies any fever or chills. Denies any nausea, vomiting or abdominal pain. Denies any recent illness. Denies any cough, chest pain or shortness of breath. Patient states he has not had this type of infection before. Objective Vitals Vital Signs Date Time Temp Pulse Resp B/P (MAP) Pulse Ox O2 Delivery O2 Flow Rate FiO2 12/05/17 08:28 98.1 62 18 121/68 (85) 95 12/05/17 05:21 18 12/05/17 03:11 99.7 73 16 110/72 (85) 98 12/04/17 23:28 99.6 72 16 133/80 (97) 99 12/04/17 15:59 99.0 94 16 129/79 (96) 99 Result Diagram: 12/05/17 0635 12/05/17 0635 Imaging Last Impressions Finger X-Ray 12/04/17 0000 Signed Impressions: Service Date/Time: Monday, December 04, 2017 16:12 - CONCLUSION: Severe soft tissue swelling of the right third digit extending into the metacarpal region. No evidence of acute fracture or destructive bone changes. No evidence of radiopaque foreign body Stuart King MD Objective Remarks GENERAL: Well-developed well-nourished male, INAD. Awake and alert. Lying in bed. Daughter at the bedside. SKIN: Third digit of the right hand has diffuse swelling with erythema that extends to the forearm. (+)4x4cm cellulitic area with central yellowish exudate right sided mid back. HEAD: Atraumatic. Normocephalic. EYES: Extraocular motions intact. No scleral icterus. No injection or drainage. ENT: Nose without bleeding or purulent drainage. Airway patent. Tracheostomy. MMM. NECK: Trachea midline. No lymphadenopathy. Supple, nontender, no meningeal signs. CARDIOVASCULAR: Regular rate and rhythm without murmurs, gallops, or rubs. RESPIRATORY: Clear to auscultation. Breath sounds equal bilaterally. No wheezes , rales, or rhonchi. GASTROINTESTINAL: Abdomen soft, non-tender, nondistended. No hepato-splenomegaly , or palpable masses. No guarding. MUSCULOSKELETAL: Extremities without clubbing, cyanosis, or edema in BLEs. Severe pain with flexion or extension of the third digit right hand. Unable to retoucher photoengraving with right hand. Decreased range of motion in all digits right hand. NEUROLOGICAL: Awake and alert. Cranial nerves II through XII grossly intact. Motor and sensory grossly within normal limits except for limited right hand. Normal speech. Medications and IVs Current Medications Medications (Trade) Dose Ordered Sig/Gege Route Start Time Stop Time Status Last Admin Sodium Chloride 1,000 ml @ 100 mls/hr Q10H IV 12/04/17 22:55 12/05/17 09:24 (NS Flush) 2 ml UNSCH PRN IV FLUSH 12/04/17 23:00 (NS Flush) 2 ml BID IV FLUSH 12/05/17 09:00 12/05/17 09:23 (Tylenol) 650 mg Q4H PRN PO 12/04/17 23:00 (Zofran Inj) 4 mg Q6H PRN IVP 12/04/17 23:00 (Narcan Inj) 0.4 mg UNSCH PRN IV PUSH 12/04/17 23:00 Pharmacy Profile Note 0 ml @ 0 mls/hr UNSCH OTHER 12/04/17 23:00 Piperacillin Sod/ Tazobactam Sod 50 ml @ 100 mls/hr Q6H IV 12/04/17 23:00 12/05/17 09:23 Vancomycin HCl 1000 mg/Sodium Chloride 250 ml @ 250 mls/hr Q12H IV 12/05/17 00:00 12/05/17 12:38 Miscellaneous Information SPECIFIC LAB TO BE [facility]... ONCE ONCE .XX 12/06/17 11:45 12/06/17 11:46 (Morphine Inj) 2 mg Q3H PRN IV PUSH 12/05/17 01:30 12/05/17 12:39 A/P Assessment and Plan 47yo male with PMHX of throat cancer admitted with cellulitis right 3rd digit/ hand: 1. Right 3rd digit/hand cellulitis Concern for tenosynovitis MRI pending Hand surgery consulted, appreciate recommendations Continue on IV Vancomycin/Zosyn Wound culture pending Blood culture shows no growth x 1 day obtain UDS Consult ID, appreciate assistance 2. Hypokalemia K 3.4 By mouth repletion ordered Repeat BMP in a.m. 3. Macrocytic anemia Obtain B12 and folate level Hemoglobin appears stable No active bleeding Continue to monitor FEN NPO Electrolytes: monitor and replete prn NS at 100 cc/hr Ambulation Discharge Planning Discharge pending clinical course and hand and ID clearance Niki Mendoza Dec 05, 2017 11:03
[2017-12-05 11:08] LABS: FOLATE 17.5 NG/ML (3.1-17.5)
[2017-12-05 11:31] VITALS: BP 128/67; PULSE 48; RESP 18; TEMP 98; O2SAT 95
--- NOTE | 2017-12-05 15:59 | PD.CONS ---
History of Present Illness Service Hand surgery Consult Requested By Primary Team Reason for Consult Right MF infection Primary Care Physician No Primary Care Physician Diagnoses: (1) Paronychia of finger (2) Finger infection History of Present Illness 47-year-old male with a past medical history significant for throat cancer presents to the emergency department for evaluation of the third digit right hand swelling. The patient reports that the swelling initially started 4-5 days ago and has increasingly worsened. He denies any fever/chills. The patient has constant severe pain, worst over the dorsal P2 of the MF. Much less pain volarly. Minimal pain proximal to mid P2. The patient denies any type of laceration or puncture to the area. No chest pain or shortness of breath. No nausea/vomiting/diarrhea. No abdominal pain. Except as stated in HPI: all other systems reviewed are Neg Past Medical History Throat cancer Past Surgical History Tracheostomy Throat cancer surgery, patient unclear of exact procedure Reported Medications Reported Meds & Active Scripts Active Prednisone (21) 10 mg tab Dose Pack (Prednisone) 10 Mg Pack 10 Mg PO DIRECTED Augmentin (Amoxicillin-Clavulanate) 875-125 Mg Tab 1 Tab PO BID Allergies: Coded Allergies: No Known Allergies (Unverified Allergy, Unknown, 09/29/17) Family History Negative for CAD/DM Social History Quit tobacco 4 years ago. Rare alcohol. Denies illicit drugs. Review of Systems Except in HPI, ROS negative to presenting complaint Past Family Social History Allergies: Coded Allergies: No Known Allergies (Unverified Allergy, Unknown, 09/29/17) Physical Exam Vital Signs Vital Signs Date Time Temp Pulse Resp B/P (MAP) Pulse Ox O2 Delivery O2 Flow Rate FiO2 12/05/17 11:31 98.0 48 18 128/67 (87) 95 12/05/17 08:28 98.1 62 18 121/68 (85) 95 12/05/17 05:21 18 12/05/17 03:11 99.7 73 16 110/72 (85) 98 12/04/17 23:28 99.6 72 16 133/80 (97) 99 12/04/17 15:59 99.0 94 16 129/79 (96) 99 Physical Exam No apparent anxiety alert and oriented 3 moist mucous membranes PERRLA skin without rash respirations nonlabored gait within normal limits digits warm and well-perfused RUE erythema over dorsal hand Moderate edema Unkempt R MF w/ moderate edema Minimal ttp over flexor tendon Minimal pain with full digit extension TTP worst over dorsal P3/P2 +epidermolysis dorsally unroofed w/ purulence expressed cxs sent Otherwise no fluctuance appreciated Laboratory Laboratory Tests Test 12/04/17 17:19 12/05/17 06:35 12/05/17 10:26 White Blood Count 7.5 5.3 Red Blood Count 3.31 3.03 Hemoglobin 11.6 10.6 Hematocrit 33.5 30.3 Mean Corpuscular Volume 101.1 100.1 Mean Corpuscular Hemoglobin 35.1 35.1 Mean Corpuscular Hemoglobin Concent 34.7 35.1 Red Cell Distribution Width 13.6 13.5 Platelet Count 250 236 Mean Platelet Volume 7.1 7.1 Neutrophils (%) (Auto) 79.6 83.2 Lymphocytes (%) (Auto) 10.3 7.8 Monocytes (%) (Auto) 8.2 7.3 Eosinophils (%) (Auto) 1.2 1.0 Basophils (%) (Auto) 0.7 0.7 Neutrophils # (Auto) 6.0 4.4 Lymphocytes # (Auto) 0.8 0.4 Monocytes # (Auto) 0.6 0.4 Eosinophils # (Auto) 0.1 0.1 Basophils # (Auto) 0.1 0.0 CBC Comment DIFF FINAL DIFF FINAL Differential Comment Prothrombin Time 10.1 Prothromb Time International Ratio 1.0 Activated Partial Thromboplast Time 33.4 Blood Urea Nitrogen 4 4 Creatinine 0.78 0.76 Random Glucose 79 82 Calcium Level 9.0 8.4 Sodium Level 130 134 Potassium Level 3.9 3.4 Chloride Level 95 99 Carbon Dioxide Level 25.5 25.0 Anion Gap 10 10 Estimat Glomerular Filtration Rate 107 110 Magnesium Level 1.9 Vitamin B12 Level 510 Folate 17.5 Urine Opiates Screen POS Urine Barbiturates Screen NEG Urine Amphetamines Screen NEG Urine Benzodiazepines Screen NEG Urine Cocaine Screen NEG Urine Cannabinoids Screen NEG Date/Time Source Procedure Growth Status 12/04/17 20:51 Blood Peripheral Aerobic Blood Culture - Preliminary NO GROWTH IN 1 DAY Resulted 12/04/17 20:51 Blood Peripheral Anaerobic Blood Culture - Preliminary NO GROWTH IN 1 DAY Resulted 12/04/17 22:12 Wound Finger Gram Stain - Final Resulted 12/04/17 22:12 Wound Finger Wound Culture - Preliminary Resulted Result Diagram: 12/05/17 0635 12/05/17 0635 Imaging MRI final read pending, no drainable collection appreciated by me Assessment and Plan Problem List: (1) Finger infection ICD Codes: L08.9 - Local infection of the skin and subcutaneous tissue, unspecified Status: Acute (2) Paronychia of finger ICD Codes: L03.019 - Cellulitis of unspecified finger Status: Acute Assessment and Plan 47M w/ severe paronychia/cellulitis Unroofed bullae/epidermolysis at bedside Although patient has severe infection, does not appear to have any indicated surgical intervention at this time as MRI appears without drainable collection Patient does not have any of Kanavels signs and pain is primarily dorsal so very low clinical suspicion for flexor tenosynovitis Pt may eat IV antibiotics Betadine/warm soapy water soaks tid Problem Qualifiers (1) Paronychia of finger: Qualified Codes: L03.011 - Cellulitis of right finger Ramy Cabrera MD Dec 05, 2017 15:59
--- NOTE | 2017-12-05 16:27 | HHI.PR ---
Addendum to Inpatient Note Additional Information pt seen examined fukll note to follow Hanna Castro MD Dec 05, 2017 16:27
[2017-12-05 17:07] VITALS: BP 142/82; PULSE 53; RESP 18; TEMP 97.4; O2SAT 99
[2017-12-05 20:34] VITALS: BP 144/76; PULSE 48; RESP 18; TEMP 98.3; O2SAT 98
[2017-12-05] MEDS: DOCUSATE SODIUM 50 MG/SENNA 8.6 MG TAB PO SCH (21:35)
[2017-12-05] MEDS: ACETAMINOPHEN/HYDROcodone 325 MG/10 MG TAB PO PRN (21:36)
[2017-12-05 23:29] VITALS: BP 131/80; PULSE 52; RESP 20; TEMP 98.1; O2SAT 98
[2017-12-06] MEDS: VANCOMYCIN INJ 1,000 MG in SODIUM CHLOR 0.9% 250 ML INJ 250 ML IV SCH ×3 (00:39→23:34)
[2017-12-06] MEDS: MORPHINE SULFATE 2 MG/ML INJ IV PUSH PRN (00:45)
[2017-12-06 03:39] VITALS: BP 140/77; PULSE 49; RESP 18; TEMP 97.6; O2SAT 99
[2017-12-06] MEDS: PIPERACIL-TAZO 3.375 GM PREMIX 50 ML IV SCH ×2 (05:22→10:43)
[2017-12-06] MEDS: ACETAMINOPHEN/HYDROcodone 325 MG/10 MG TAB PO PRN ×3 (05:53→19:15)
[2017-12-06] MEDS: DOCUSATE SODIUM 50 MG/SENNA 8.6 MG TAB PO SCH ×2 (09:00→23:14)
[2017-12-06 09:11] VITALS: BP 143/85; PULSE 53; RESP 16; TEMP 97.7; O2SAT 99
--- NOTE | 2017-12-06 09:20 | PD.ID.CON ---
History of Present Illness Consult Requested By Primary Care Physician No Primary Care Physician Diagnoses: History of Present Illness his is delayed entry PT was seen yDecember 05 around 4 pm 47-year-old male with a past medical history significant for throat cancer presents to the emergency department for evaluation of the third digit right hand swelling. The patient reports that the swelling initially started 4-5 days ago and has increasingly worsened. He denies any fever/chills. Pt was seen by hand surgeon who unroofed the bulla on the dorsum and pt was started on broad spectrum abx Clx showed GPC in pair on G stain Review of Systems Except as stated in HPI: all other systems reviewed are Neg Past Family Social History Allergies: Coded Allergies: No Known Allergies (Unverified Allergy, Unknown, 09/29/17) Past Medical History Throat cancer Past Surgical History Tracheostomy Throat cancer surgery, patient unclear of exact procedure Active Ordered Medications Medications where reviewed in EMR Antibiotics Include: clinda vanco zosyn Family History Negative for CAD/DM Social History Quit tobacco 4 years ago. Rare alcohol. Denies illicit drugs. Physical Exam Vital Signs Vital Signs Date Time Temp Pulse Resp B/P (MAP) Pulse Ox O2 Delivery O2 Flow Rate FiO2 12/06/17 03:39 97.6 49 18 140/77 (98) 99 12/05/17 23:29 98.1 52 20 131/80 (97) 98 12/05/17 20:34 98.3 48 18 144/76 (98) 98 12/05/17 17:07 97.4 53 18 142/82 (102) 99 12/05/17 11:31 98.0 48 18 128/67 (87) 95 Physical Exam CONSTITUTIONAL/GENERAL: This is an adequately nourished patient, in no apparent distress. TUBES/LINES/DRAINS: SKIN: No jaundice, rashes, or lesions. Skin temperature appropriate. Not diaphoretic. HEAD: Atraumatic. Normocephalic. EYES: Pupils equal and round and reactive. Extraocular motions intact. No scleral icterus. No injection or drainage. Fundi not examined. ENT: Hearing grossly normal. Nose without bleeding or purulent drainage. Throat without visible erythema, exudates, masses, or lesions. NECK: Trachea midline. Trachoestomy in place; no erythema, drainage CARDIOVASCULAR: Regular rate and rhythm without murmurs, gallops, or rubs. No JVD. Peripheral pulses symmetric. RESPIRATORY/CHEST: Symmetric, unlabored respirations. Clear to auscultation. Breath sounds equal bilaterally. No wheezes, rales, or rhonchi. GASTROINTESTINAL: Abdomen soft, non-tender, nondistended. No hepato-splenomegaly , or palpable masses. No guarding. Bowel sounds present. MUSCULOSKELETAL: Extremities without clubbing, cyanosis, or edema. No joint tenderness or effusion noted. No calf tenderness. No mottling or clubbing. R middle finger with marked edema and erythema, those findings extend to the dorsum of the hand no ascending lymphangitis/lymphadenopathy LYMPHATICS: No palpable cervical or supraclavicular adenopathy. NEUROLOGICAL: Awake and alert. Motor and sensory grossly within normal limits. Follows commands. Cognitively sharp. Moves all extremities. PSYCHIATRIC: No obvious anxiety/depression. no apparent hallucinations or other psychotic thought process. Laboratory Laboratory Tests Test 12/05/17 10:26 Urine Opiates Screen POS Urine Barbiturates Screen NEG Urine Amphetamines Screen NEG Urine Benzodiazepines Screen NEG Urine Cocaine Screen NEG Urine Cannabinoids Screen NEG Date/Time Source Procedure Growth Status 12/04/17 20:51 Blood Peripheral Aerobic Blood Culture - Preliminary NO GROWTH IN 1 DAY Resulted 12/04/17 20:51 Blood Peripheral Anaerobic Blood Culture - Preliminary NO GROWTH IN 1 DAY Resulted 12/05/17 16:35 Wound Finger Gram Stain - Final Resulted 12/05/17 16:35 Wound Finger Wound Culture Pending Resulted Result Diagram: 12/05/17 0635 12/05/17 0635 Imaging MRIU findings were reviewed with Dr Wills over the phone Assessment and Plan Assessment and Plan Phegmon, cellulirtis and / tenosynovitis of RMF - G stain and clin picture cw with staph/strep infx - Rec's; cont current abx fu clinically might need surgery Discussed Condition With Renuka Braun and Hanna Turcios MD Dec 06, 2017 09:20
--- NOTE | 2017-12-06 09:32 | RADRPT ---
EXAM DATE/TIME: 12/05/2017 09:33 [facility] COMPARISON: No previous studies available for comparison. INDICATIONS : Tenosynovitis. Swelling of entire hand. CONTRAST: 12 cc Omniscan (gadodiamide) IV MEDICAL HISTORY : Laryngeal cancer. SURGICAL HISTORY : Prosthetic voice box and right foot surgery. ENCOUNTER: Initial ACUITY: 1 week PAIN SCORE: 5/10 LOCATION: Right Hand. TECHNIQUE: Multiplanar, multisequence MRI examination was performed without contrast and after the intravenous a dministration of gadolinium. FINDINGS: BONE/CARTILAGE: Bone marrow signal is homogeneous. No evidence of any focal or significant bone marrow edema is demon strated. There are subchondral cysts and/or erosions involving the distal second, third and fourth me tatarsals suggestive of arthritis. TENDONS: All of the visualized tendons are grossly intact. MISCELLANEOUS: There is diffuse nonspecific edema and soft tissue swelling especially along the dorsum of the hand. There is soft tissue swelling involving the third finger. No loculated fluid collections are seen in the soft tissues to suggest a focal soft tissue abscess. No definite joint effusions are demonstrated .. POST-CONTRAST: There are no definite abnormal areas of enhancement on the post-contrast images. CONCLUSION: 1. There is diffuse nonspecific edema and soft tissue swelling predominantly involving the dorsum of the hand as well as the third finger. This is suggestive of diffuse cellulitis. No loculated fluid co llections are seen to suggest a focal soft tissue abscess. 2. There are degenerative type changes involving the distal portions of the second, third and fourth metatarsals suggestive of nonspecific arthritis. 3. No definite evidence of osteomyelitis. Tomás Wills MD on December 06, 2017 at 9:26 Board Certified Radiologist. This report was verified electronically.
[2017-12-06 10:21] LABS: BICARBONATE 25.8 MEQ/L (21.0-32.0); CALCIUM 8.9 MG/DL (8.5-10.1); CREATININE 0.7 MG/DL (0.60-1.30)
[2017-12-06] MEDS: SODIUM CHLORIDE 0.9% FLUSH 10 ML FLUSH IV FLUSH SCH ×2 (10:43→23:15)
[2017-12-06] MEDS ORDERED: PHARMACY ORDERED LAB ONE (11:45)
--- NOTE | 2017-12-06 12:15 | HHI.IDPN ---
Subjective Subjective Remarks pt was seen today around 11 am He states his pain is better, is able to bend better no fever Antibiotics scotto milan xclinda Allergies: Coded Allergies: No Known Allergies (Unverified Allergy, Unknown, 09/29/17) Objective . Vital Signs Date Time Temp Pulse Resp B/P (MAP) Pulse Ox O2 Delivery O2 Flow Rate FiO2 12/06/17 09:11 97.7 53 16 143/85 (104) 99 12/06/17 03:39 97.6 49 18 140/77 (98) 99 12/05/17 23:29 98.1 52 20 131/80 (97) 98 12/05/17 20:34 98.3 48 18 144/76 (98) 98 12/05/17 17:07 97.4 53 18 142/82 (102) 99 . Laboratory Tests Test 12/04/17 17:19 12/05/17 06:35 White Blood Count 7.5 TH/MM3 5.3 TH/MM3 Red Blood Count 3.31 MIL/MM3 3.03 MIL/MM3 Hemoglobin 11.6 GM/DL 10.6 GM/DL Hematocrit 33.5 % 30.3 % Mean Corpuscular Volume 101.1 FL 100.1 FL Mean Corpuscular Hemoglobin 35.1 PG 35.1 PG Mean Corpuscular Hemoglobin Concent 34.7 % 35.1 % Red Cell Distribution Width 13.6 % 13.5 % Platelet Count 250 TH/MM3 236 TH/MM3 Mean Platelet Volume 7.1 FL 7.1 FL Neutrophils (%) (Auto) 79.6 % 83.2 % Lymphocytes (%) (Auto) 10.3 % 7.8 % Monocytes (%) (Auto) 8.2 % 7.3 % Eosinophils (%) (Auto) 1.2 % 1.0 % Basophils (%) (Auto) 0.7 % 0.7 % Neutrophils # (Auto) 6.0 TH/MM3 4.4 TH/MM3 Lymphocytes # (Auto) 0.8 TH/MM3 0.4 TH/MM3 Monocytes # (Auto) 0.6 TH/MM3 0.4 TH/MM3 Eosinophils # (Auto) 0.1 TH/MM3 0.1 TH/MM3 Basophils # (Auto) 0.1 TH/MM3 0.0 TH/MM3 CBC Comment DIFF FINAL DIFF FINAL Differential Comment Laboratory Tests Test 12/04/17 17:19 12/05/17 06:35 12/06/17 08:56 Blood Urea Nitrogen 4 MG/DL 4 MG/DL 6 MG/DL Creatinine 0.78 MG/DL 0.76 MG/DL 0.70 MG/DL Random Glucose 79 MG/DL 82 MG/DL 75 MG/DL Calcium Level 9.0 MG/DL 8.4 MG/DL 8.9 MG/DL Sodium Level 130 MEQ/L 134 MEQ/L 130 MEQ/L Potassium Level 3.9 MEQ/L 3.4 MEQ/L 3.8 MEQ/L Chloride Level 95 MEQ/L 99 MEQ/L 97 MEQ/L Carbon Dioxide Level 25.5 MEQ/L 25.0 MEQ/L 25.8 MEQ/L Anion Gap 10 MEQ/L 10 MEQ/L 7 MEQ/L Estimat Glomerular Filtration Rate 107 ML/MIN 110 ML/MIN 121 ML/MIN Magnesium Level 1.9 MG/DL 2.3 MG/DL Vitamin B12 Level 510 PG/ML Folate 17.5 NG/ML Microbiology Date/Time Source Procedure Growth Status 12/04/17 20:51 Blood Peripheral Aerobic Blood Culture - Preliminary NO GROWTH IN 2 DAYS Resulted 12/04/17 20:51 Blood Peripheral Anaerobic Blood Culture - Preliminary NO GROWTH IN 2 DAYS Resulted 12/04/17 20:40 Blood Peripheral Aerobic Blood Culture - Preliminary NO GROWTH IN 2 DAYS Resulted 12/04/17 20:40 Blood Peripheral Anaerobic Blood Culture - Preliminary NO GROWTH IN 2 DAYS Resulted 12/05/17 16:35 Wound Finger Gram Stain - Final Resulted 12/05/17 16:35 Wound Finger Wound Culture Pending Resulted 12/04/17 22:12 Wound Finger Gram Stain - Final Resulted 12/04/17 22:12 Wound Culture - Preliminary S. Aureus Mrsa Group A Beta Strep Resulted Imaging Last Impressions Hand MRI 12/05/17 0000 Signed Impressions: Service Date/Time: November 09:33 - CONCLUSION: 1. There is diffuse nonspecific edema and soft tissue swelling predominantly involving the dorsum of the hand as well as the third finger. This is suggestive of diffuse cellulitis. No loculated fluid collections are seen to suggest a focal soft tissue abscess. 2. There are degenerative type changes involving the distal portions of the second, third and fourth metatarsals suggestive of nonspecific arthritis. 3. No definite evidence of osteomyelitis. Tomás Wills MD Finger X-Ray 12/04/17 0000 Signed Impressions: Service Date/Time: Monday, December 04, 2017 16:12 - CONCLUSION: Severe soft tissue swelling of the right third digit extending into the metacarpal region. No evidence of acute fracture or destructive bone changes. No evidence of radiopaque foreign body Stuart King MD Physical Exam CONSTITUTIONAL/GENERAL: This is an adequately nourished patient, in no apparent distress. TUBES/LINES/DRAINS: SKIN: No jaundice, rashes, or lesions. MUSCULOSKELETAL: Extremities without clubbing, cyanosis, or edema. No joint tenderness or effusion noted. No calf tenderness. No mottling or clubbing. R middle finger with improved edema and erythema, edema of the hand nearly resolved no ascending lymphangitis/lymphadenopathy Assessment & Plan Remarks Assessment and Plan Phegmon, cellulirtis and / tenosynovitis of RMF - GAS, MRSA clinically improving - G stain and clin picture cw with staph/strep infx - Rec's;scotto neno clinda ampicillin cont vancomycin Hanna Castro MD Dec 06, 2017 12:15
--- NOTE | 2017-12-06 12:42 | HHI.PR ---
Subjective Remarks Follow-up on patient with cellulitis right third digit/hand. Patient seen and examined. Patient states that his finger is feeling better. He has more motion in the finger and hand. He denies any fever or chills. He denies any headache, lightheadedness or dizziness. Denies any chest pain or shortness of breath. Denies any nausea, vomiting or abdominal pain. Reports BM last night. Objective Vitals Vital Signs Date Time Temp Pulse Resp B/P (MAP) Pulse Ox O2 Delivery O2 Flow Rate FiO2 12/06/17 09:11 97.7 53 16 143/85 (104) 99 12/06/17 03:39 97.6 49 18 140/77 (98) 99 12/05/17 23:29 98.1 52 20 131/80 (97) 98 12/05/17 20:34 98.3 48 18 144/76 (98) 98 12/05/17 17:07 97.4 53 18 142/82 (102) 99 I/O 12/05/17 12/05/17 12/05/17 12/06/17 12/06/17 12/06/17 07:00 15:00 23:00 07:00 15:00 23:00 # Voids 3 Result Diagram: 12/05/17 0635 12/06/17 0856 Imaging Last Impressions Hand MRI 12/05/17 0000 Signed Impressions: Service Date/Time: November 09:33 - CONCLUSION: 1. There is diffuse nonspecific edema and soft tissue swelling predominantly involving the dorsum of the hand as well as the third finger. This is suggestive of diffuse cellulitis. No loculated fluid collections are seen to suggest a focal soft tissue abscess. 2. There are degenerative type changes involving the distal portions of the second, third and fourth metatarsals suggestive of nonspecific arthritis. 3. No definite evidence of osteomyelitis. Tomás Wills MD Finger X-Ray 12/04/17 0000 Signed Impressions: Service Date/Time: Monday, December 04, 2017 16:12 - CONCLUSION: Severe soft tissue swelling of the right third digit extending into the metacarpal region. No evidence of acute fracture or destructive bone changes. No evidence of radiopaque foreign body Stuart King MD Objective Remarks GENERAL: Well-developed well-nourished male, INAD. Awake and alert. Sitting up in bed. Appears comfortable. SKIN: Third digit of the right hand dressed. HEAD: Atraumatic. Normocephalic. EYES: Extraocular motions intact. No scleral icterus. No injection or drainage. ENT: Nose without bleeding or purulent drainage. Airway patent. Tracheostomy. MMM. NECK: Trachea midline. No lymphadenopathy. Supple, nontender, no meningeal signs. CARDIOVASCULAR: Bradycardia without murmurs, gallops, or rubs. RESPIRATORY: Clear to auscultation. Breath sounds equal bilaterally. No wheezes , rales, or rhonchi. GASTROINTESTINAL: Abdomen soft, non-tender, nondistended. No hepato-splenomegaly , or palpable masses. No guarding. MUSCULOSKELETAL: Extremities without clubbing, cyanosis, or edema in BLEs. Pain with flexion or extension of the third digit right hand, improved. 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 Decreased range of motion in all digits right hand. NEUROLOGICAL: Awake and alert. Cranial nerves II through XII grossly intact. Motor and sensory grossly within normal limits except for limited right hand. Normal speech. Medications and IVs Current Medications Medications (Trade) Dose Ordered Sig/Gege Route Start Time Stop Time Status Last Admin (NS Flush) 2 ml UNSCH PRN IV FLUSH 12/04/17 23:00 (NS Flush) 2 ml BID IV FLUSH 12/05/17 09:00 12/06/17 10:43 (Tylenol) 650 mg Q4H PRN PO 12/04/17 23:00 (Zofran Inj) 4 mg Q6H PRN IVP 12/04/17 23:00 (Narcan Inj) 0.4 mg UNSCH PRN IV PUSH 12/04/17 23:00 Pharmacy Profile Note 0 ml @ 0 mls/hr UNSCH OTHER 12/04/17 23:00 Vancomycin HCl 1000 mg/Sodium Chloride 250 ml @ 250 mls/hr Q12H IV 12/05/17 00:00 12/06/17 00:39 (Morphine Inj) 2 mg Q3H PRN IV PUSH 12/05/17 01:30 12/06/17 00:45 ([place] 10-325 Mg) 1 tab Q6H PRN PO 12/05/17 16:45 12/06/17 05:53 ([place] 5-325 Mg) 1 tab Q6H PRN PO 12/05/17 16:45 (Jaleesa-Colace) 1 tab BID PO 12/05/17 21:00 12/05/17 21:35 Ampicillin Sodium 2000 mg/Sodium Chloride 100 ml @ 400 mls/hr Q4H IV 12/06/17 14:00 A/P Assessment and Plan 47yo male with PMHX of throat cancer admitted with cellulitis right 3rd digit/ hand: 1. Right 3rd digit/hand paronychia/cellulitis MRI shows diffuse nonspecific edema and soft tissue swelling predominantly involving the dorsum of the hand as well as the third finger. This is suggestive of diffuse cellulitis. No loculated fluid collections are seen to suggest a focal soft tissue abscess. Hand surgery consulted, appreciate recommendations. s/p unroofing of bullae/ epidermolysis at bedside, no indication for surgical intervention at this time. Wound cx growing MRSA and Group A strep. BCX no growth x 2 days. ID following, appreciate assistance. Zosyn discontinued. Continue on IV Vancomycin. Ampicillin added. UDS negative except for opiates 2. Hypokalemia resolved s/p repletion 3. Macrocytic anemia B12 and folate level WNL Hemoglobin with slight trend down obtain MMA No active bleeding Continue to monitor 4. Bradycardia asymptomatic obtain TSH level EKG shows bradycardia, ?high grade AV block, delta wave Consult Cardiology, appreciate recommendations FEN Heart healthy diet Electrolytes: monitor and replete prn Ambulation Discharge Planning Discharge pending clinical course and hand and ID clearance Niki Mednoza Dec 06, 2017 12:42
[2017-12-06 12:55] VITALS: BP 157/97; PULSE 51; RESP 18; TEMP 97.9; O2SAT 100
--- NOTE | 2017-12-06 14:53 | MB ---
cc: Kain Hardwick MD DATE: 12/06/2017 INDICATION FOR CONSULTATION: Bradycardia. HISTORY OF PRESENT ILLNESS: This is a nice 47-year-old gentleman who has history of throat cancer, who came in due to the third digit on his right hand swelling. This started about 4-5 days ago. He has a history of a tracheostomy. No prior history of any known heart problems. They have noticed that over the course of the past 24 hours that he has had some relative bradycardia, heart rates in the 40s and 50 beats per minute, but the patient denies any lightheadedness, dizziness or chest pain. He has been otherwise asymptomatic. He has been treated for MRSA and group A strep with the initiation of intravenous antibiotics. We are consulted for further recommendations. PAST MEDICAL HISTORY: Throat cancer. ALLERGIES: NO KNOWN DRUG ALLERGIES. FAMILY HISTORY: Denies any family history of early coronary disease or sudden cardiac . SOCIAL HISTORY: Quit tobacco 4 years ago. Rare alcohol use. PHYSICAL EXAMINATION: VITAL SIGNS: Temperature 97, heart rate 51, blood pressure 157/97 mmHg. GENERAL: Alert and oriented x 3, in no acute distress. HEENT: Shows pupils reactive to light and accomodation. Extraocular movements are intact. NECK: No elevation of jugular venous distention. No thyromegaly. No lymphadenopathy. No carotid bruits. LUNGS: Clear to auscultation bilaterally. CARDIOVASCULAR: Regular rate and rhythm without murmurs, rubs or gallops. ABDOMEN: Nontender, nondistended with good bowel sounds. No hepatosplenomegaly. EXTREMITIES: Show no clubbing, cyanosis or edema. Good peripheral pulses. NEUROLOGIC: Cranial nerves intact. Motor and sensory grossly intact. LABORATORY DATA: WBC 5.3, hemoglobin is 10.6, platelet count is 236. INR is 1. Sodium 130, potassium 3.8, chloride is 97, BUN 6, creatinine 0.7. TSH 74.5. ASSESSMENT: Sinus bradycardia. PLAN: The patient is asymptomatic with sinus bradycardia. It has been slowly trending down, although he is not on any AV shelley blocking agents. This may be due to increased vagal tone, but TSH is markedly elevated consistent with thyroid disorder. Likely it will help to normalize the bradycardia. No indication for pacemaker. The patient probably augments heart rate appropriately with ambulation. We will sign off. Call with any questions. MD CLAUDIA Gillespie/KD , 02:22 PM , 02:51 PM
[2017-12-06] MEDS: AMPICILLIN INJ 2,000 MG in SODIUM CHLORIDE 0.9% INJ 100 ML IV SCH ×3 (15:13→23:14)
[2017-12-06] MEDS: ACETAMINOPHEN/HYDROcodone 325 MG/5 MG TAB PO PRN (23:35)
[2017-12-06 23:52] VITALS: BP 151/96; PULSE 58; RESP 18; TEMP 98.1; O2SAT 99
[2017-12-07] MEDS: AMPICILLIN INJ 2,000 MG in SODIUM CHLORIDE 0.9% INJ 100 ML IV SCH ×3 (02:59→10:52)
[2017-12-07 05:32] VITALS: BP 140/72; PULSE 54; RESP 18; TEMP 98.4; O2SAT 96
[2017-12-07] MEDS: LEVOTHYROXINE SODIUM 100 MCG TAB PO SCH (06:03)
[2017-12-07] MEDS: ACETAMINOPHEN/HYDROcodone 325 MG/5 MG TAB PO PRN (06:18)
--- NOTE | 2017-12-07 08:19 | HHI.PR ---
Subjective Remarks Follow-up on patient with cellulitis right third digit/hand. Patient seen and examined. Patient reports improvement in the right third digit/hand. Denies any fever or chills. Denies any dizziness, lightheadedness, shortness of breath or chest pain. Patient with history of throat cancer status post radiation treatment now found to be bradycardic with elevated TSH 75. Started on thyroid replacement therapy, discussed with patient appropriately take medication for effectiveness. Patient also understands he'll need to follow up with his PCP to have TSH level rechecked in few weeks. Patient denies any nausea or vomiting. He denies any complaints of diarrhea. Objective Vitals Vital Signs Date Time Temp Pulse Resp B/P (MAP) Pulse Ox O2 Delivery O2 Flow Rate FiO2 12/07/17 05:32 98.4 54 18 140/72 (94) 96 12/06/17 23:52 98.1 58 18 151/96 (114) 99 12/06/17 12:55 97.9 51 18 157/97 (117) 100 12/06/17 09:11 97.7 53 16 143/85 (104) 99 I/O 12/06/17 12/06/17 12/06/17 12/07/17 12/07/17 12/07/17 07:00 15:00 23:00 07:00 15:00 23:00 # Voids 4 2 Result Diagram: 12/05/17 0635 12/06/17 0856 Imaging Last Impressions Hand MRI 12/05/17 0000 Signed Impressions: Service Date/Time: November 09:33 - CONCLUSION: 1. There is diffuse nonspecific edema and soft tissue swelling predominantly involving the dorsum of the hand as well as the third finger. This is suggestive of diffuse cellulitis. No loculated fluid collections are seen to suggest a focal soft tissue abscess. 2. There are degenerative type changes involving the distal portions of the second, third and fourth metatarsals suggestive of nonspecific arthritis. 3. No definite evidence of osteomyelitis. Tomás Wills MD Finger X-Ray 12/04/17 0000 Signed Impressions: Service Date/Time: Monday, December 04, 2017 16:12 - CONCLUSION: Severe soft tissue swelling of the right third digit extending into the metacarpal region. No evidence of acute fracture or destructive bone changes. No evidence of radiopaque foreign body Stuart King MD Objective Remarks GENERAL: Well-developed well-nourished male patient, INAD. Awake and alert. Sitting up in bed watching TV. SKIN: Third digit of the right hand dressed but with noticeable improvement in erythema and edema. Also with improved range of motion of the right hand. HEAD: Atraumatic. Normocephalic. EYES: Extraocular motions intact. No scleral icterus. No injection or drainage. ENT: Nose without bleeding or purulent drainage. Airway patent. Tracheostomy. MMM. NECK: Trachea midline. No lymphadenopathy. Supple, nontender, no meningeal signs. CARDIOVASCULAR: Bradycardia without murmurs, gallops, or rubs. RESPIRATORY: Clear to auscultation. Breath sounds equal bilaterally. No wheezes , rales, or rhonchi. GASTROINTESTINAL: Abdomen soft, non-tender, nondistended. MUSCULOSKELETAL: Extremities without clubbing, cyanosis, or edema in BLEs. Pain with flexion or extension of the third digit right hand, improved. ROM right hand improving. NEUROLOGICAL: Awake and alert. Cranial nerves II through XII grossly intact. Motor and sensory grossly within normal limits except for limited right hand. PSYCHIATRIC: Appropriate mood and affect. Normal judgment and insight. Medications and IVs Current Medications Medications (Trade) Dose Ordered Sig/Gege Route Start Time Stop Time Status Last Admin (NS Flush) 2 ml UNSCH PRN IV FLUSH 12/04/17 23:00 (NS Flush) 2 ml BID IV FLUSH 12/05/17 09:00 12/06/17 23:15 (Tylenol) 650 mg Q4H PRN PO 12/04/17 23:00 (Zofran Inj) 4 mg Q6H PRN IVP 12/04/17 23:00 (Narcan Inj) 0.4 mg UNSCH PRN IV PUSH 12/04/17 23:00 Pharmacy Profile Note 0 ml @ 0 mls/hr UNSCH OTHER 12/04/17 23:00 Vancomycin HCl 1000 mg/Sodium Chloride 250 ml @ 250 mls/hr Q12H IV 12/05/17 00:00 12/06/17 23:34 (Morphine Inj) 2 mg Q3H PRN IV PUSH 12/05/17 01:30 12/06/17 00:45 ([place] 10-325 Mg) 1 tab Q6H PRN PO 12/05/17 16:45 12/06/17 19:15 ([place] 5-325 Mg) 1 tab Q6H PRN PO 12/05/17 16:45 12/07/17 06:18 (Jaleesa-Colace) 1 tab BID PO 12/05/17 21:00 12/06/17 23:14 Ampicillin Sodium 2000 mg/Sodium Chloride 100 ml @ 400 mls/hr Q4H IV 12/06/17 14:00 12/07/17 06:03 Miscellaneous Information SPECIFIC LAB TO BE DRAWN:VANCOMYCIN TROUGH DATE TO... ONCE ONCE .XX 12/08/17 11:45 12/08/17 11:46 (Synthroid) 100 mcg DAILY@0600 PO 12/07/17 06:00 12/07/17 06:03 A/P Assessment and Plan 47yo male with PMHX of throat cancer admitted with cellulitis right 3rd digit/ hand: 1. Right 3rd digit/hand paronychia/cellulitis, improving MRI shows diffuse cellulitis, no abscess. Hand surgery consulted, appreciate recommendations. s/p unroofing of bullae/ epidermolysis at bedside, no indication for surgical intervention at this time. Continue wound care with Betadine soaks TID. Wound cx growing MRSA and Group A strep. BCX negative. ID following, appreciate assistance. Zosyn discontinued. Continue on IV Vancomycin and Ampicillin. UDS negative except for opiates 2. Hypokalemia resolved s/p repletion 3. Macrocytic anemia B12 and folate level WNL Hemoglobin with slight trend down obtain MMA/pending No active bleeding Continue to monitor 4. Sinus Bradycardia asymptomatic TSH elevated Evaluated by Cardiology, no indication for pacemaker. Signed off. 5. Hypothyroidism hx of throat cancer status post radiation treatment TSH level 74.500, free T4 0.32 begin Levothyroxine 100mcg daily patient will need to have TSH level rechecked in 4-6 weeks with PCP as outpatient 6. Hyponatremia suspect secondary to hypothyroidism mild, asymptomatic trending upwards FEN Heart healthy diet Electrolytes: monitor and replete prn Ambulation Discharge Planning Discharge pending clinical course and hand and ID clearance Niki Mendoza Dec 07, 2017 08:19
[2017-12-07 08:24] VITALS: BP 138/90; PULSE 53; RESP 12; TEMP 98.8; O2SAT 96
[2017-12-07 10:06] LABS: BICARBONATE 26.4 MEQ/L (21.0-32.0); CALCIUM 8.6 MG/DL (8.5-10.1); CREATININE 0.63 MG/DL (0.60-1.30)
[2017-12-07] MEDS: MORPHINE SULFATE 2 MG/ML INJ IV PUSH PRN (10:06)
[2017-12-07] MEDS: SODIUM CHLORIDE 0.9% FLUSH 10 ML FLUSH IV FLUSH SCH ×2 (10:07→22:11)
[2017-12-07] MEDS: DOCUSATE SODIUM 50 MG/SENNA 8.6 MG TAB PO SCH ×2 (10:07→22:11)
[2017-12-07 10:10] LABS: FREE T4 0.32 NG/DL (0.76-1.46)
[2017-12-07 11:53] VITALS: BP 146/91; PULSE 54; RESP 16; TEMP 98.6; O2SAT 98
[2017-12-07] MEDS: VANCOMYCIN INJ 1,000 MG in SODIUM CHLOR 0.9% 250 ML INJ 250 ML IV SCH (12:19)
[2017-12-07] MEDS: ACETAMINOPHEN/HYDROcodone 325 MG/10 MG TAB PO PRN ×2 (12:19→18:40)
[2017-12-07 12:44] LABS: CHOLESTEROL/ HDL RATIO 3.92 RATIO; HDL CHOLESTEROL 56.3 MG/DL (40.0-60.0)
--- NOTE | 2017-12-07 13:57 | EKG ---
Date Performed: 12/06/2017 Time Performed: 09:20:48 PTAGE: 47 years EKG: Sinus rhythm WITH HIGH GRADE AV BLOCK MODERATE INTRAVENTRICULAR CONDUCTION DELAY ABNORMAL ECG PREVIOUS TRACING : 09/29/2017 1606 Since the previous tracing, no significant change noted DOCTOR: Cong Aj Interpretating Date/Time 12/07/2017 13:56:49
[2017-12-07] MEDS: AMPICILLIN 2 GM/NS 100 ML IV SCH ×6 (16:16→22:12)
[2017-12-07 23:53] VITALS: BP 161/93; PULSE 51; RESP 17; TEMP 97.8; O2SAT 97
[2017-12-08] MEDS: VANCOMYCIN INJ 1,000 MG in SODIUM CHLOR 0.9% 250 ML INJ 250 ML IV SCH ×2 (00:15→12:14)
[2017-12-08] MEDS: ACETAMINOPHEN/HYDROcodone 325 MG/10 MG TAB PO PRN ×3 (01:12→12:16)
[2017-12-08] MEDS: AMPICILLIN 2 GM/NS 100 ML IV SCH ×6 (01:24→10:08)
[2017-12-08 03:39] VITALS: BP 129/77; PULSE 53; RESP 16; TEMP 98.2; O2SAT 100
[2017-12-08] MEDS: LEVOTHYROXINE SODIUM 100 MCG TAB PO SCH (05:57)
[2017-12-08 07:46] VITALS: BP 141/87; PULSE 54; RESP 14; TEMP 97.8; O2SAT 98
--- NOTE | 2017-12-08 09:22 | HHI.PR ---
Subjective Remarks Follow-up on patient with right hand/third digit finger cellulitis. Patient seen and examined. Patient states his right finger here much improved. He denies any complaints of fever or chills. He denies any dizziness, lightheadedness or vision changes. Denies any chest pain or shortness of breath. Denies any complaints of nausea, vomiting or diarrhea. Objective Vitals Vital Signs Date Time Temp Pulse Resp B/P (MAP) Pulse Ox O2 Delivery O2 Flow Rate FiO2 12/08/17 07:46 97.8 54 14 141/87 (105) 98 12/08/17 03:39 98.2 53 16 129/77 (94) 100 12/07/17 23:53 97.8 51 17 161/93 (115) 97 12/07/17 11:53 98.6 54 16 146/91 (109) 98 I/O 12/07/17 12/07/17 12/07/17 12/08/17 12/08/17 12/08/17 07:00 15:00 23:00 07:00 15:00 23:00 Intake Total 250 ml 200 ml 450 ml Balance 250 ml 200 ml 450 ml Intake IV Total 250 ml 200 ml 450 ml # Voids 2 1 Result Diagram: 12/05/17 0635 12/07/17 0703 Imaging Last Impressions Hand MRI 12/05/17 0000 Signed Impressions: Service Date/Time: November 09:33 - CONCLUSION: 1. There is diffuse nonspecific edema and soft tissue swelling predominantly involving the dorsum of the hand as well as the third finger. This is suggestive of diffuse cellulitis. No loculated fluid collections are seen to suggest a focal soft tissue abscess. 2. There are degenerative type changes involving the distal portions of the second, third and fourth metatarsals suggestive of nonspecific arthritis. 3. No definite evidence of osteomyelitis. Tomás Wills MD Finger X-Ray 12/04/17 0000 Signed Impressions: Service Date/Time: Monday, December 04, 2017 16:12 - CONCLUSION: Severe soft tissue swelling of the right third digit extending into the metacarpal region. No evidence of acute fracture or destructive bone changes. No evidence of radiopaque foreign body Stuart King MD Objective Remarks GENERAL: Well-developed well-nourished male patient, INAD. Awake and alert. Sitting up in bed. SKIN: Third digit of the right hand dressed but with noticeable improvement in erythema and edema. Also with improved range of motion of the right hand. HEAD: Atraumatic. Normocephalic. EYES: Extraocular motions intact. No scleral icterus. No injection or drainage. ENT: Nose without bleeding or purulent drainage. Airway patent. Tracheostomy. MMM. NECK: Trachea midline. No lymphadenopathy. Supple, nontender, no meningeal signs. CARDIOVASCULAR: Bradycardia without murmurs, gallops, or rubs. RESPIRATORY: Clear to auscultation. Breath sounds equal bilaterally. No wheezes , rales, or rhonchi. GASTROINTESTINAL: Abdomen soft, non-tender, nondistended. MUSCULOSKELETAL: Extremities without clubbing, cyanosis, or edema in BLEs. Pain with flexion or extension of the third digit right hand, improved. ROM right hand improving, almost able to make fist. NEUROLOGICAL: Awake and alert. Cranial nerves II through XII grossly intact. Motor and sensory grossly within normal limits except for limited right hand. PSYCHIATRIC: Appropriate mood and affect. Normal judgment and insight. Medications and IVs Current Medications Medications (Trade) Dose Ordered Sig/Gege Route Start Time Stop Time Status Last Admin (NS Flush) 2 ml UNSCH PRN IV FLUSH 12/04/17 23:00 (NS Flush) 2 ml BID IV FLUSH 12/05/17 09:00 12/07/17 22:11 (Tylenol) 650 mg Q4H PRN PO 12/04/17 23:00 (Zofran Inj) 4 mg Q6H PRN IVP 12/04/17 23:00 (Narcan Inj) 0.4 mg UNSCH PRN IV PUSH 12/04/17 23:00 Pharmacy Profile Note 0 ml @ 0 mls/hr UNSCH OTHER 12/04/17 23:00 Vancomycin HCl 1000 mg/Sodium Chloride 250 ml @ 250 mls/hr Q12H IV 12/05/17 00:00 12/08/17 00:15 ([place] 10-325 Mg) 1 tab Q6H PRN PO 12/05/17 16:45 12/08/17 07:32 ([place] 5-325 Mg) 1 tab Q6H PRN PO 12/05/17 16:45 12/07/17 06:18 (Jaleesa-Colace) 1 tab BID PO 12/05/17 21:00 12/07/17 22:11 Miscellaneous Information SPECIFIC LAB TO BE DRAWN:VANCOMYCIN TROUGH DATE TO... ONCE ONCE .XX 12/08/17 11:45 12/08/17 11:46 (Synthroid) 100 mcg DAILY@0600 PO 12/07/17 06:00 12/08/17 05:57 Ampicillin Sodium 2000 mg/Sodium Chloride 100 ml @ 300 mls/hr Q4H IV 12/07/17 14:00 12/08/17 05:57 A/P Assessment and Plan 47yo male with PMHX of throat cancer admitted with cellulitis right 3rd digit/ hand: 1. Right 3rd digit/hand paronychia/cellulitis, improving MRI shows diffuse cellulitis, no abscess. Hand surgery consulted, appreciate recommendations. s/p unroofing of bullae/ epidermolysis at bedside, no indication for surgical intervention at this time. Continue wound care with Betadine soaks TID. Wound cx growing MRSA and Group A strep. BCX negative. ID following, appreciate assistance. Zosyn discontinued. Continue on IV Vancomycin and Ampicillin. UDS negative except for opiates 12/08/17 - patient cleared for discharge from ID standpoint on Doxycycline 100mg BID and Amoxicillin 500mg TID x 10 days. 2. Hypokalemia resolved s/p repletion 3. Macrocytic anemia B12 and folate level WNL Hemoglobin with slight trend down obtain MMA/pending No active bleeding Continue to monitor 4. Sinus Bradycardia asymptomatic TSH elevated Evaluated by Cardiology, no indication for pacemaker. Signed off. 5. Hypothyroidism hx of throat cancer status post radiation treatment TSH level 74.500, free T4 0.32 begin Levothyroxine 100mcg daily, continue patient will need to have TSH level rechecked in 4-6 weeks with PCP as outpatient 6. Hyponatremia suspect secondary to hypothyroidism mild, asymptomatic trending upwards FEN Heart healthy diet Electrolytes: monitor and replete prn Ambulation Discharge Planning Discharge pending ID clearance Niki Mendoza Dec 08, 2017 09:22
[2017-12-08] MEDS: DOCUSATE SODIUM 50 MG/SENNA 8.6 MG TAB PO SCH (10:08)
[2017-12-08] MEDS: SODIUM CHLORIDE 0.9% FLUSH 10 ML FLUSH IV FLUSH SCH (10:08)
[2017-12-08] MEDS ORDERED: PHARMACY ORDERED LAB ONE (11:45)
--- NOTE | 2017-12-08 11:50 | HHI.FF ---
Face to Face Verification Diagnosis: (1) Sinus bradycardia (2) Hypothyroidism (3) MRSA (methicillin resistant Staphylococcus aureus) infection (4) Finger infection (5) Paronychia of finger Home Health Nursing Order: Medical education Signs/symptoms of disease process Medication education-adverse effect Wound care and dressing changes (Warm soapy water betadine soaks three times a day) Nursing assessment with vital signs I have seen patient Pola Eddy Sr Duy on 12/08/17. My clinical findings support the need for the requested home health care services because: Med compliance is questionable I certify that my clinical findings support that this patient is homebound because: Post-op weakness Niki Mendoza Dec 08, 2017 11:50
--- NOTE | 2017-12-08 12:05 | HHI.DS ---
Discharge Summary Admission Date Dec 04, 2017 at 22:14 Discharge Date: Dec 08, 2017 Admitting Diagnosis Finger Infection (1) MRSA (methicillin resistant Staphylococcus aureus) infection ICD Code: A49.02 - Methicillin resistant Staphylococcus aureus infection, unspecified site (2) Finger infection ICD Code: L08.9 - Local infection of the skin and subcutaneous tissue, unspecified Status: Acute (3) Paronychia of finger ICD Code: L03.019 - Cellulitis of unspecified finger Status: Acute (4) Sinus bradycardia ICD Code: R00.1 - Bradycardia, unspecified (5) Macrocytic anemia ICD Code: D53.9 - Nutritional anemia, unspecified (6) Hyponatremia ICD Code: E87.1 - Hypo-osmolality and hyponatremia (7) Hypothyroidism ICD Code: E03.9 - Hypothyroidism, unspecified Procedures Unroofed bullae/epidermolysis at bedside performed by Dr. Cabrera 12/07/17 Brief History - From Admission 47-year-old male with a past medical history significant for throat cancer presents to the emergency department for evaluation of the third digit right hand swelling. The patient reports that the swelling initially started 4-5 days ago and has increasingly worsened. He denies any fever/chills. The patient has constant severe pain worse with palpation and passive or active flexion of the fingers. Pain radiates to the forearm with erythema on the dorsum of the hand and up the forearm. The patient denies any type of laceration or puncture to the area. No chest pain or shortness of breath. No nausea/vomiting/diarrhea. No abdominal pain. CBC/BMP: 12/05/17 0635 12/07/17 0703 Significant Findings Laboratory Tests Test 12/06/17 08:56 12/06/17 12:25 12/07/17 07:03 Blood Urea Nitrogen 6 MG/DL (7-18) Sodium Level 130 MEQ/L (136-145) 131 MEQ/L (136-145) Chloride Level 97 MEQ/L (98-107) 96 MEQ/L (98-107) Thyroid Stimulating Hormone 3rd Gen 74.500 uIU/ML (0.358-3.740) Vancomycin Level Trough 11.9 MCG/ML (5.0-10.0) Cholesterol Level 221 MG/DL (120-200) LDL Cholesterol 139 MG/DL (0-99) Free Thyroxine 0.32 NG/DL (0.76-1.46) Imaging Last Impressions Hand MRI 12/05/17 0000 Signed Impressions: Service Date/Time: November 09:33 - CONCLUSION: 1. There is diffuse nonspecific edema and soft tissue swelling predominantly involving the dorsum of the hand as well as the third finger. This is suggestive of diffuse cellulitis. No loculated fluid collections are seen to suggest a focal soft tissue abscess. 2. There are degenerative type changes involving the distal portions of the second, third and fourth metatarsals suggestive of nonspecific arthritis. 3. No definite evidence of osteomyelitis. Tomás Wills MD Finger X-Ray 12/04/17 0000 Signed Impressions: Service Date/Time: Monday, December 04, 2017 16:12 - CONCLUSION: Severe soft tissue swelling of the right third digit extending into the metacarpal region. No evidence of acute fracture or destructive bone changes. No evidence of radiopaque foreign body Stuart King MD PE at Discharge GENERAL: Well-developed well-nourished male patient, INAD. Awake and alert. Sitting up in bed watching TV. SKIN: Third digit of the right hand dressed but with noticeable improvement in erythema and edema. Also with improved range of motion of the right hand. HEAD: Atraumatic. Normocephalic. EYES: Extraocular motions intact. No scleral icterus. No injection or drainage. ENT: Nose without bleeding or purulent drainage. Airway patent. Tracheostomy. MMM. NECK: Trachea midline. No lymphadenopathy. Supple, nontender, no meningeal signs. CARDIOVASCULAR: Bradycardia without murmurs, gallops, or rubs. RESPIRATORY: Clear to auscultation. Breath sounds equal bilaterally. No wheezes , rales, or rhonchi. GASTROINTESTINAL: Abdomen soft, non-tender, nondistended. MUSCULOSKELETAL: Extremities without clubbing, cyanosis, or edema in BLEs. Pain with flexion or extension of the third digit right hand, improved. ROM right hand improving. NEUROLOGICAL: Awake and alert. Cranial nerves II through XII grossly intact. Motor and sensory grossly within normal limits except for limited right hand. PSYCHIATRIC: Appropriate mood and affect. Normal judgment and insight. Pt update on day of discharge Follow up on patient with right 3rd digit infection. Patient seen and examined. Patient denies any medical complaints. States swelling in his right finger and hand is much improved as is the pain. He has increased range of motion in the right hand and all digits. He denies any fever or chills. Denies any complaints of nausea or vomiting or diarrhea. He denies any dizziness or lightheadedness. Denies any chest pain or shortness of breath. Discussed with nursing staff, no acute issues noted. Hospital Course Patient admitted with right hand/third digit cellulitis with concern for tenosynovitis. MRI was ordered which revealed no evidence of underlying abscess. He was seen in consultation by hand surgery who did not feel that surgical intervention was warranted but did perform an unroofing of the bullae and epidermolysis at the bedside with purulence expressed. Patient was started on IV vancomycin and Zosyn. Wound and blood cultures were obtained. Patient was seen in consultation by Infectious Disease. Blood cultures were negative. Wound cultures grew MRSA and group A beta strep. Zosyn was discontinued and he was started on IV ampicillin and continued on IV vancomycin. Patient found to have asymptomatic bradycardia likely due to thyroid disorder with elevated TSH of 74.5 and low free T4 0.32. Patient was started on Levothyroxine 100mcg daily. He was seen in consultation by Cardiology who did not feel a pacemaker was indicated and signed off. Clinically the patient improved. Patient found to have macrocytic anemia. B12 and Folate levels normal. MMA pending at time of discharge. Throughout his hospitalization, patient remained afebrile and neurovascularly intact. He was cleared for discharge by Hand and ID service. Pt Condition on Discharge: Stable Discharge Disposition: Disch w/ Home Health Serv Discharge Time: > 30 minutes Discharge Instructions DIET: Follow Instructions for: Heart Healthy Diet Follow up Referrals: Hand Surgery - 1 Week PCP Follow-up - 1 Week New Orders: TSH 3RD GEN - 4 Weeks New Medications: Lactobacillus Acidophilus (Lactobacillus Acidophilus) 1 Billion Cell Tab 1 TAB PO TIDAC for Nutritional Supplement, #30 TAB 0 Refills Amoxicillin (Amoxicillin) 500 Mg Cap 500 MG PO TID for Infection, #30 CAP Doxycycline Hyclate (Doxycycline Hyclate) 100 Mg Cap 100 MG PO BID for INFECTION for 10 Days, #20 CAP Hydrocodone/Acetaminophen (Hydrocodone-Acetamin 5-325 mg) 5 Mg-325 Mg Tablet 1-2 TAB PO Q6H PRN for PAIN SCALE 1 TO 10, #20 TAB Levothyroxine (Synthroid) 100 Mcg Tab 100 MCG PO DAILY@0600 for HYPOTHYROIDISM, #30 TAB Discontinued Medications: Amoxicillin-Clavulanate (Augmentin) 875-125 Mg Tab 1 TAB PO BID for Infection, #16 TAB 0 Refills Prednisone (21) 10 mg tab Dose Pack (Prednisone (21) 10 mg tab Dose Pack) 10 Mg Pack 10 MG PO DIRECTED for Inflammation, #1 DSPK 0 Refills Niki Mendoza Dec 08, 2017 12:05
--- NOTE | 2017-12-08 12:29 | HHI.PR ---
Addendum to Inpatient Note Additional Information Case dw Niki Bell OK to dc pt home on oral abx: amoxicillin 500 mg PO tid + doxycyline 100 mg po bid for 10 days Hanna Castro MD Dec 08, 2017 12:29
[2017-12-08] MEDS ORDERED: AMOXICILLIN (TRIHYDRATE) 500 MG CAP PO SCH (13:00)
[2017-12-08] MEDS ORDERED: HYDR-3516 PO (13:04)
[2017-12-08 13:08] VITALS: BP 146/91; PULSE 55; RESP 14; TEMP 97.8; O2SAT 98
[2017-12-08] MEDS ORDERED: LEVO.1 PO (13:09)
[2017-12-08] MEDS ORDERED: DOXY100C PO (13:09)
[2017-12-08] MEDS ORDERED: AMOX500C PO (13:09)
[2017-12-08] MEDS ORDERED: LACTTAB8 PO (14:20)
[2017-12-08] MEDS ORDERED: DOXYCYCLINE HYCLATE 100 MG CAP PO SCH (21:00)
== END 2017-12-08 17:28 | disposition home or self-care (01) ==
LOC: NEPD 15:49 → NEDA 22:14 → NEPHCDU 23:28
PROVIDERS: ADMIT Internal Medicine; ATTEND Internal Medicine
DX: B95.62 Methicillin resistant Staphylococcus aureus infection as the cause of diseases classified elsewhere (principal); Z85.21 Personal history of malignant neoplasm of larynx; M54.30 Sciatica, unspecified side; F17.210 Nicotine dependence, cigarettes, uncomplicated; I44.30 Unspecified atrioventricular block; E87.6 Hypokalemia; D53.9 Nutritional anemia, unspecified; R00.1 Bradycardia, unspecified; Z92.3 Personal history of irradiation; E87.1 Hypo-osmolality and hyponatremia; E03.9 Hypothyroidism, unspecified
CPT/HCPCS: 10060; 73140; 73220; 80048; 80061; 80202; 80307; 82607; 82746; 83735; 83921; 84439; 84443; 85025; 85610; 85730; 86403; 87040; 87070; 87147; 87186; 87205; 93005; 96361; 96365; 96366; 96367; 96368; 96375; 96376; 99285; A9579; G0378; J0290; J2270; J2543; J3370; J7030; J7050